=== PATIENT | female | born 1940 | race Caucasian/White ===

== ENCOUNTER → 2017-02-11 | Outpatient (CLI) | payer BC, MEDICARE ==
[2017-02-11 11:42] LABS: CH 31.4; CHCM 33.1; HDW 2.31; HGB 13.8 gm/dL (11.4-16.0); MCH 31.3 pg (25.0-35.0); MCHC 32.9 g/dL (31.0-37.0); MCV 95.1 fL (80.0-100.0); RBC 4.42 m/uL (3.80-5.40); RDW 12.9 % (11.5-15.5); WBC 4.2 k/uL (3.8-10.6)
[2017-02-11 11:53] LABS: AST 36 U/L (14-36); Alkaline Phosphatase 55 U/L (38-126); Anion Gap 7 mmol/L; Blood Urea Nitrogen 9 mg/dL (7-17); Calcium 8.8 mg/dL (8.4-10.2); Carbon Dioxide 30 mmol/L (22-30); Chloride 104 mmol/L (98-107); Cholesterol 132 mg/dL (<200); Glucose 81 mg/dL (74-99); HDL Cholesterol 53 mg/dL (40-60); Non-African American GFR(MDRD) >60 (>60 ml/min/1.73 sqM); Potassium 4.2 mmol/L (3.5-5.1); Sodium 141 mmol/L (137-145); Total Bilirubin 0.6 mg/dL (0.2-1.3); Total Protein 5.9 g/dL (6.3-8.2); Triglycerides 59 mg/dL (<150)
[2017-02-11 12:01] LABS: ALT 52 U/L (9-52)
--- NOTE | 2017-02-11 13:07 | XR ---
EXAMINATION TYPE: XR chest 2V DATE OF EXAM: 02/11/2017 COMPARISON: Prior chest x-ray 05/30/2015 HISTORY: Hypertensive heart disease, I11.9 TECHNIQUE: Frontal and lateral views of the chest are obtained. FINDINGS: There is no focal air space opacity, pleural effusion, or pneumothorax seen. The cardiac silhouette size is stable, borderline enlarged. The aorta is dense. There are prominent lung volume s. The osseous structures are intact. IMPRESSION: No acute cardiopulmonary process.
== END | disposition home or self-care (01) ==
LOC: LABWHC1 11:11
PROVIDERS: ATTEND Internal Medicine
DX: I11.9 Hypertensive heart disease without heart failure (principal); E78.2 Mixed hyperlipidemia; M19.90 Unspecified osteoarthritis, unspecified site; K21.0 Gastro-esophageal reflux disease with esophagitis
CPT/HCPCS: 36415; 71020; 80053; 80061; 82272; 84439; 84443; 85027

== ENCOUNTER → 2017-10-07 | Outpatient (CLI) | payer MEDICARE ==
[2017-10-07 10:02] LABS: HCT 45.9 % (34.0-46.0); HGB 15.1 gm/dL (11.4-16.0); MCH 30.4 pg (25.0-35.0); MCHC 32.8 g/dL (31.0-37.0); MCV 92.7 fL (80.0-100.0); Mean Platelet Volume 8.2; Platelet Count 212 k/uL (150-450); RBC 4.95 m/uL (3.80-5.40); RDW 13.4 % (11.5-15.5); WBC 4.9 k/uL (3.8-10.6)
[2017-10-07 10:28] LABS: Albumin 4.1 g/dL (3.5-5.0); Calcium 9.5 mg/dL (8.4-10.2); Potassium 4.7 mmol/L (3.5-5.1); Total Bilirubin 0.7 mg/dL (0.2-1.3); Total Protein 6.7 g/dL (6.3-8.2)
[2017-10-07 10:40] LABS: T4, Free (Free Thyroxine) 1.21 ng/dL (0.78-2.19)
== END | disposition home or self-care (01) ==
LOC: LABWHC1 09:19
PROVIDERS: ATTEND Internal Medicine
DX: Z00.01 Encounter for general adult medical examination with abnormal findings (principal); I11.9 Hypertensive heart disease without heart failure; E03.9 Hypothyroidism, unspecified; E78.2 Mixed hyperlipidemia; K21.0 Gastro-esophageal reflux disease with esophagitis
CPT/HCPCS: 36415; 80053; 80061; 82272; 84439; 84443; 85027

== ENCOUNTER 2017-12-11 10:15 | Emergency (ER) | payer MEDICARE ==
[2017-12-11 11:23] VITALS: TEMP 97.2
[2017-12-11] MEDS ORDERED: LORazepam 2 MG/ML INJ IV STA (11:46)
--- NOTE | 2017-12-11 11:58 | ED ---
Anxiety HPI - General Chief Complaint: Anxiety Stated Complaint: anxiety Time Seen by Provider: 12/11/17 11:25 Source: patient, RN notes reviewed Mode of arrival: ambulatory Limitations: no limitations - History of Present Illness Initial Comments: 77-year-old female presented emergency Department chief complaint of shaking. She states that she cannot control his shaking. She states that she's had problems with this in the past in which she had a nervous breakdown. Patient has had recent medication changes in which she was placed on Prozac in which she used to be on Cymbalta and Celexa. Patient states she's not suicidal homicidal. Patient denies any chest pain, shortness breath, headache, dizziness , nausea vomiting diarrhea constipation. - Related Data Home Medications: Home Medications Medication Instructions Recorded Confirmed Multivitamins, Thera [Theragran] 1 tab PO DAILY 06/07/15 12/11/17 Propylene Glycol/Peg 400/Pf 1 drop BOTH EYES DAILY 06/07/15 12/11/17 [Systane 0.3-0.4% Eye Drops] Diazepam [Valium] 2.5 mg PO HS 06/09/15 12/11/17 FLUoxetine HCL [PROzac] 20 mg PO DAILY 12/11/17 12/11/17 Levothyroxine Sodium [Synthroid] 100 mcg PO DAILY 12/11/17 12/11/17 Allergies/Adverse Reactions: Allergies Allergy/AdvReac Type Severity Reaction Status Date / Time codeine Allergy Unknown Verified 12/11/17 11:47 Sulfa (Sulfonamide AdvReac Unknown Verified 12/11/17 11:47 Antibiotics) Review of Systems ROS Statement: Those systems with pertinent positive or pertinent negative responses have been documented in the HPI. ROS Other: All systems not noted in ROS Statement are negative. Past Medical History Past Medical History: Hyperlipidemia, Thyroid Disorder Additional Past Medical History / Comment(s): 06/07/15 Pt presented to [facility] ER complaining of depression and anxiety. She has been struggling with this for about a month or so. She feels this is due to family problems at home. Her PCP is concerned about dehydration and weakness as well. Pt is admitted with anxiety, depression, dehydration and weakness. Other HX: hypothyroidism, recent UTI 05/30/15, arthiritis bilateral hands fingers, colonic polyps with removal, diverticular disease, occasional constipation. History of Any Multi-Drug Resistant Organisms: None Reported Past Surgical History: Adenoidectomy, Appendectomy, Hysterectomy, Orthopedic Surgery, Tonsillectomy Additional Past Surgical History / Comment(s): 2015 R heel tendon surgery with bone spur removal, bilateral cataracts, hemorrhoidectomy, R knee arthroscopy, colonoscopies with polypectomies, neuromas removed belateral feet as well as bunionectomy. Past Anesthesia/Blood Transfusion Reactions: Motion Sickness, Postoperative Nausea & Vomiting (PONV) Past Psychological History: Anxiety, Depression Smoking Status: Former smoker Past Alcohol Use History: None Reported Past Drug Use History: None Reported - Past Family History Father Additional Family Medical History / Comment(s): Father during abdominal aortic aneurysm repair at age 76yrs. Mother Family Medical History: Cancer Additional Family Medical History / Comment(s): Mother of breast cancer at age 77 yrs. General Exam General appearance: alert, in no apparent distress Head exam: Present: atraumatic, normocephalic, normal inspection Eye exam: Present: normal appearance, PERRL, EOMI. Absent: scleral icterus, conjunctival injection, periorbital swelling ENT exam: Present: normal exam, normal oropharynx, mucous membranes moist Neck exam: Present: normal inspection, full ROM. Absent: tenderness, meningismus, lymphadenopathy Respiratory exam: Present: normal lung sounds bilaterally. Absent: respiratory distress, wheezes, rales, rhonchi, stridor Cardiovascular Exam: Present: regular rate, normal rhythm, normal heart sounds. Absent: systolic murmur, diastolic murmur, rubs, gallop, clicks Neurological exam: Present: alert, oriented X3, CN II-XII intact, reflexes normal. Absent: motor sensory deficit Skin exam: Present: warm, dry, intact, normal color. Absent: rash Course Vital Signs 12/11/17 12/11/17 11:15 12:52 Temperature 97.2 F L Pulse Rate 71 72 Respiratory 18 18 Rate Blood Pressure 110/61 142/75 O2 Sat by Pulse 99 98 Oximetry Medical Decision Making - Medical Decision Making 69-year-old female presents from for anxiety issues. Patient has had medication changes and has been shaking because him. Patient had normal lab work. Patient is not suicidal homicidal. Patient feels better after Ativan will be discharged this time advise follow-up PCP. - Lab Data Result diagrams: 12/11/17 12:49 05/30/18 12:49 Lab Results 12/11/17 12/11/17 Range/Units 12:49 12:49 WBC 6.4 (3.8-10.6) k/uL RBC 4.83 (3.80-5.40) m/uL Hgb 15.2 (11.4-16.0) gm/dL Hct 44.6 (34.0-46.0) % MCV 92.3 (80.0-100.0) fL MCH 31.4 (25.0-35.0) pg MCHC 34.0 (31.0-37.0) g/dL RDW 13.3 (11.5-15.5) % Plt Count 218 (150-450) k/uL Neutrophils % 78 % Lymphocytes % 15 % Monocytes % 5 % Eosinophils % 1 % Basophils % 1 % Neutrophils # 5.0 (1.3-7.7) k/uL Lymphocytes # 1.0 (1.0-4.8) k/uL Monocytes # 0.3 (0-1.0) k/uL Eosinophils # 0.1 (0-0.7) k/uL Basophils # 0.0 (0-0.2) k/uL Sodium 143 (137-145) mmol/L Potassium 3.9 (3.5-5.1) mmol/L Chloride 104 (98-107) mmol/L Carbon Dioxide 27 (22-30) mmol/L Anion Gap 12 mmol/L BUN 12 (7-17) mg/dL Creatinine 0.59 (0.52-1.04) mg/dL Est GFR (CKD-EPI)AfAm >90 (>60 ml/min/1.73 sqM) Est GFR (CKD-EPI)NonAf 88 (>60 ml/min/1.73 sqM) Glucose 87 (74-99) mg/dL Calcium 9.3 (8.4-10.2) mg/dL Magnesium 2.3 (1.6-2.3) mg/dL Total Bilirubin 0.7 (0.2-1.3) mg/dL AST 20 (14-36) U/L ALT 29 (9-52) U/L Alkaline Phosphatase 79 (38-126) U/L Total Protein 6.6 (6.3-8.2) g/dL Albumin 4.4 (3.5-5.0) g/dL Disposition Clinical Impression: Acute anxiety Disposition: HOME SELF-CARE Condition: Stable Instructions: Generalized Anxiety Disorder (ED) Additional Instructions: Please return to the Emergency Department if symptoms worsen or any other concerns. Is patient prescribed a controlled substance at d/c from ED?: No Referrals: Wilbert Neff MD [Primary Care Provider] - 1-2 days Time of Disposition: 13:39
[2017-12-11 13:06] LABS: Basophils % (A) 1 %; Eosinophils # (A) 0.1 k/uL (0-0.7); Eosinophils % (A) 1 %; HCT 44.6 % (34.0-46.0); HGB 15.2 gm/dL (11.4-16.0); Lymphocytes % (A) 15 %; MCH 31.4 pg (25.0-35.0); MCV 92.3 fL (80.0-100.0); Mean Platelet Volume 8.2; Monocytes # (A) 0.3 k/uL (0-1.0); Monocytes % (A) 5 %; Neutrophils % (A) 78 %; Platelet Count 218 k/uL (150-450); RBC 4.83 m/uL (3.80-5.40); RDW 13.3 % (11.5-15.5); WBC 6.4 k/uL (3.8-10.6)
[2017-12-11 13:15] LABS: ALT 29 U/L (9-52); AST 20 U/L (14-36); Albumin 4.4 g/dL (3.5-5.0); Alkaline Phosphatase 79 U/L (38-126); Anion Gap 12 mmol/L; Blood Urea Nitrogen 12 mg/dL (7-17); Calcium 9.3 mg/dL (8.4-10.2); Carbon Dioxide 27 mmol/L (22-30); Chloride 104 mmol/L (98-107); Glucose 87 mg/dL (74-99); Magnesium 2.3 mg/dL (1.6-2.3); Potassium 3.9 mmol/L (3.5-5.1); Sodium 143 mmol/L (137-145); Total Bilirubin 0.7 mg/dL (0.2-1.3); Total Protein 6.6 g/dL (6.3-8.2)
[2017-12-11 13:56] VITALS: BP 128/79; PULSE 58; RESP 16
== END 2017-12-11 14:01 | disposition home or self-care (01) ==
LOC: EC 10:15
DX: F41.9 Anxiety disorder, unspecified (principal); E07.9 Disorder of thyroid, unspecified; F32.9 Major depressive disorder, single episode, unspecified; Z98.890 Other specified postprocedural states; Z87.891 Personal history of nicotine dependence; Z79.899 Other long term (current) drug therapy; Z88.2 Allergy status to sulfonamides; Z88.5 Allergy status to narcotic agent
CPT/HCPCS: 36415; 80053; 84443; 83735; 85025; 99283; 96374; J2060

== ENCOUNTER 2018-01-09 09:21 | Emergency (ER) | payer MEDICARE ==
[2018-01-09 09:27] VITALS: RESP 18
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
[2018-01-09 10:30] VITALS: BP 127/70; PULSE 82; TEMP 97.6
== END 2018-01-09 10:30 | disposition home or self-care (01) ==
LOC: EC 09:21
DX: S80.11XA Contusion of right lower leg, initial encounter (principal); S80.12XA Contusion of left lower leg, initial encounter; S70.12XA Contusion of left thigh, initial encounter; E03.9 Hypothyroidism, unspecified; F32.9 Major depressive disorder, single episode, unspecified; F41.9 Anxiety disorder, unspecified; Z87.891 Personal history of nicotine dependence; Z79.82 Long term (current) use of aspirin; Z79.899 Other long term (current) drug therapy; Z88.5 Allergy status to narcotic agent; Z88.2 Allergy status to sulfonamides; V24.4XXA Motorcycle driver injured in collision with heavy transport vehicle or bus in traffic accident, initial encounter; Y92.410 Unspecified street and highway as the place of occurrence of the external cause
CPT/HCPCS: 99283

== ENCOUNTER 2018-01-23 11:47 | Emergency (ER) | payer MEDICARE ==
--- NOTE | 2018-01-23 13:02 | ED ---
General Adult HPI - General Chief complaint: Psychiatric Symptoms Stated complaint: RT LOWER LEG PAIN Time Seen by Provider: 01/23/18 12:00 Source: patient, RN notes reviewed Mode of arrival: ambulatory Limitations: no limitations - History of Present Illness Initial comments: This is a 77-year-old female who is in the emergency department because she made a comment about jumping off the bridge. Patient states she was just joking with the nurse at the primary medical care doctor's office. Patient states she would never commit suicide and she hasn't even been thinking of suicide. Patient states she does have a history of depression because she doesn 't see her kids or grandkids because they [place]. Patient states she has no physical complaints today. Patient denies any delusions or hallucinations. Patient doesn't believe anybody is trying to harm her. Patient denies trying to harm anyone else. Patient denies any drug use patient denies any drinking. - Related Data Home Medications Medication Instructions Recorded Confirmed Multivitamins, Thera [Theragran] 1 tab PO DAILY 06/07/15 01/23/18 Levothyroxine Sodium [Synthroid] 100 mcg PO DAILY 12/11/17 01/23/18 LORazepam [Ativan] 1 mg PO BID 01/09/18 01/23/18 Ibuprofen [Motrin Ib] 400 mg PO Q6H PRN 01/23/18 01/23/18 Allergies Allergy/AdvReac Type Severity Reaction Status Date / Time codeine Allergy Unknown Verified 01/23/18 12:49 Sulfa (Sulfonamide AdvReac Unknown Verified 01/23/18 12:49 Antibiotics) Review of Systems ROS Statement: Those systems with pertinent positive or pertinent negative responses have been documented in the HPI. ROS Other: All systems not noted in ROS Statement are negative. Past Medical History Past Medical History: Hyperlipidemia, Thyroid Disorder Additional Past Medical History / Comment(s): depression and anxiety. weakness as well. Pt is admitted with anxiety, depression, dehydration and weakness. Other HX: hypothyroidism, recent UTI 05/30/15, arthiritis bilateral hands fingers, colonic polyps with removal, diverticular disease, occasional constipation. History of Any Multi-Drug Resistant Organisms: None Reported Past Surgical History: Adenoidectomy, Appendectomy, Hysterectomy, Orthopedic Surgery, Tonsillectomy Additional Past Surgical History / Comment(s): 2014 R heel tendon surgery with bone spur removal, bilateral cataracts, hemorrhoidectomy, R knee arthroscopy, colonoscopies with polypectomies, neuromas removed belateral feet as well as bunionectomy. Past Anesthesia/Blood Transfusion Reactions: Motion Sickness, Postoperative Nausea & Vomiting (PONV) Past Psychological History: Anxiety, Depression Smoking Status: Former smoker Past Alcohol Use History: None Reported Past Drug Use History: None Reported - Past Family History Father Additional Family Medical History / Comment(s): Father during abdominal aortic aneurysm repair at age 76yrs. Mother Family Medical History: Cancer Additional Family Medical History / Comment(s): Mother of breast cancer at age 77 yrs. General Exam - General Exam Comments Initial Comments: GENERAL: Patient is well-developed and well-nourished. Patient is nontoxic and well- hydrated and is in no acute distress. ENT: Neck is soft and supple. No significant lymphadenopathy is noted. Oropharynx is clear. Moist mucous membranes. EYES: The sclera were anicteric and conjunctiva were pink and moist. Extraocular movements were intact and pupils were equal round and reactive to light. Eyelids were unremarkable. PULMONARY: Unlabored respirations. Good breath sounds bilaterally. No audible rales rhonchi or wheezing was noted. CARDIOVASCULAR: There is a regular rate and rhythm without any murmurs gallops or rubs. ABDOMEN: Soft and nontender with normal bowel sounds. SKIN: Skin is clear with no lesions or rashes and otherwise unremarkable. NEUROLOGIC: Patient is alert and oriented x3. Cranial nerves II through XII are grossly intact. Motor and sensory are also intact. Normal speech, volume and content. Symmetrical smile. MUSCULOSKELETAL: Normal extremities with adequate strength and full range of motion. LYMPHATICS: No significant lymphadenopathy is noted PSYCHIATRIC: Normal psychiatric evaluation. Limitations: no limitations Course Vital Signs 01/23/18 01/23/18 12:07 14:25 Temperature 97.8 F 97.7 F Pulse Rate 69 72 Respiratory 18 16 Rate Blood Pressure 108/68 108/71 O2 Sat by Pulse 97 99 Oximetry Medical Decision Making - Medical Decision Making EPS evaluated the patient and she was cleared to go home and follow-up with her PCP. Disposition Clinical Impression: Evaluation by psychiatric service required Disposition: HOME SELF-CARE Condition: Good Instructions: Depression (ED) Is patient prescribed a controlled substance at d/c from ED?: No Referrals: Wilbert Neff MD [Primary Care Provider] - 1-2 days Time of Disposition: 14:13
[2018-01-23 14:26] VITALS: BP 108/71; PULSE 72; RESP 16; TEMP 97.7
== END 2018-01-23 14:25 | disposition home or self-care (01) ==
LOC: EC 11:47
DX: Z00.8 Encounter for other general examination (principal); E03.9 Hypothyroidism, unspecified; F41.9 Anxiety disorder, unspecified; Z87.891 Personal history of nicotine dependence; Z79.899 Other long term (current) drug therapy; Z88.2 Allergy status to sulfonamides; Z88.5 Allergy status to narcotic agent
CPT/HCPCS: 82075; 99284

== ENCOUNTER 2018-03-08 13:01 | Emergency (ER) | payer MEDICARE ==
[2018-03-08] MEDS ORDERED: LORazepam 1 MG TAB PO STA (13:47)
--- NOTE | 2018-03-08 14:04 | ED ---
General Adult HPI - General Chief complaint: Anxiety Stated complaint: anxiety Time Seen by Provider: 03/08/18 13:05 Source: patient, family, RN notes reviewed Mode of arrival: ambulatory Limitations: no limitations - History of Present Illness Initial comments: This is a 78-year-old female presents emergency Department complaining of anxiety. Patient states she's on Ativan 1 mg twice a day but today she was so nervous she was just shaking. Patient states this is happened multiple times in the past. Patient states she's tried to get in to see a psychiatrist and has been unsuccessful. Patient does not have any physical complaints today. She denies any headache she denies lightheadedness or dizziness. Patient denies any numbness or weakness. Patient denies any palpitations difficulty breathing or shortness of breath. Patient denies any abdominal pain patient denies nausea vomiting diarrhea. Patient denies any recent fever chills or cough. - Related Data Home Medications Medication Instructions Recorded Confirmed Levothyroxine Sodium [Synthroid] 100 mcg PO DAILY 12/11/17 03/10/18 LORazepam [Ativan] 1 mg PO BID PRN 01/09/18 03/10/18 FLUoxetine HCL [PROzac] 20 mg PO DAILY 03/10/18 03/10/18 Allergies Allergy/AdvReac Type Severity Reaction Status Date / Time codeine Allergy Unknown Verified 03/10/18 11:24 Sulfa (Sulfonamide AdvReac Unknown Verified 03/10/18 11:24 Antibiotics) Review of Systems ROS Statement: Those systems with pertinent positive or pertinent negative responses have been documented in the HPI. ROS Other: All systems not noted in ROS Statement are negative. Past Medical History Past Medical History: Hyperlipidemia, Thyroid Disorder Additional Past Medical History / Comment(s): depression and anxiety. weakness as well. Pt is admitted with anxiety, depression, dehydration and weakness. Other HX: hypothyroidism, recent UTI 05/30/15, arthiritis bilateral hands fingers, colonic polyps with removal, diverticular disease, occasional constipation. History of Any Multi-Drug Resistant Organisms: None Reported Past Surgical History: Adenoidectomy, Appendectomy, Hysterectomy, Orthopedic Surgery, Tonsillectomy Additional Past Surgical History / Comment(s): 2014 R heel tendon surgery with bone spur removal, bilateral cataracts, hemorrhoidectomy, R knee arthroscopy, colonoscopies with polypectomies, neuromas removed belateral feet as well as bunionectomy. Past Anesthesia/Blood Transfusion Reactions: Motion Sickness, Postoperative Nausea & Vomiting (PONV) Past Psychological History: Anxiety, Depression Smoking Status: Former smoker Past Alcohol Use History: None Reported Past Drug Use History: None Reported - Past Family History Father Additional Family Medical History / Comment(s): Father during abdominal aortic aneurysm repair at age 76yrs. Mother Family Medical History: Cancer Additional Family Medical History / Comment(s): Mother of breast cancer at age 77 yrs. General Exam - General Exam Comments Initial Comments: GENERAL: Patient is well-developed and well-nourished. Patient is nontoxic and well- hydrated and is in no acute distress. ENT: Neck is soft and supple. No significant lymphadenopathy is noted. Oropharynx is clear. Moist mucous membranes. Neck has full range of motion without eliciting any pain. EYES: The sclera were anicteric and conjunctiva were pink and moist. Extraocular movements were intact and pupils were equal round and reactive to light. Eyelids were unremarkable. SKIN: Skin is clear with no lesions or rashes and otherwise unremarkable. NEUROLOGIC: Patient is alert and oriented x3. Cranial nerves II through XII are grossly intact. Motor and sensory are also intact. Normal speech, volume and content. Symmetrical smile. MUSCULOSKELETAL: Normal extremities with adequate strength and full range of motion. LYMPHATICS: No significant lymphadenopathy is noted PSYCHIATRIC: Patient is mildly anxious. Limitations: no limitations Course Vital Signs 03/08/18 03/08/18 13:07 15:20 Temperature 98.2 F 97 F L Pulse Rate 84 68 Respiratory 18 16 Rate Blood Pressure 123/57 127/71 O2 Sat by Pulse 96 97 Oximetry Medical Decision Making - Medical Decision Making EPS spoke with the patient and gave the patient appropriate follow-up. Disposition Clinical Impression: Acute anxiety Disposition: HOME SELF-CARE Instructions: Generalized Anxiety Disorder (ED) Is patient prescribed a controlled substance at d/c from ED?: No Referrals: Wilbert Neff MD [Primary Care Provider] - 1-2 days Time of Disposition: 15:07
[2018-03-08 15:20] VITALS: BP 127/71; PULSE 68; RESP 16; TEMP 97
== END 2018-03-08 15:25 | disposition home or self-care (01) ==
LOC: EC 13:01
DX: F41.9 Anxiety disorder, unspecified (principal); E03.9 Hypothyroidism, unspecified; F32.9 Major depressive disorder, single episode, unspecified; Z87.891 Personal history of nicotine dependence; Z79.899 Other long term (current) drug therapy; Z88.2 Allergy status to sulfonamides; Z88.5 Allergy status to narcotic agent
CPT/HCPCS: 99283

== ENCOUNTER 2018-03-10 11:16 | Emergency (ER) | payer MEDICARE ==
[2018-03-10 11:20] VITALS: BP 134/72; PULSE 74; RESP 20; TEMP 97.7
--- NOTE | 2018-03-10 11:38 | ED ---
Anxiety HPI - General Chief Complaint: Anxiety Stated Complaint: Anxious Time Seen by Provider: 03/10/18 11:22 Source: patient, RN notes reviewed Mode of arrival: ambulatory - History of Present Illness Initial Comments: This is a 78-year-old female who presents to the emergency department with chief complaint of anxiety. She reports her "nerves" are acting up. Patient is accompanied by her friend who also contributes to history. Patient states that she has a history of nervous breakdown. She states that she has been seen here in the emergency department multiple times since November for anxiety. She states that in November Dr. Wilbert Neff prescribed her Prozac and lorazepam. Patient was seen here 2 days ago and did speak with EPS nurse who provided her with outpatient follow-up information. Patient states that she is having difficulty getting in to see a psychiatrist. Patient denies recent fevers or chills, chest pain shortness of breath, abdominal pain, nausea or vomiting, dizziness or headache. - Related Data Home Medications: Home Medications Medication Instructions Recorded Confirmed Levothyroxine Sodium [Synthroid] 100 mcg PO DAILY 12/11/17 03/10/18 LORazepam [Ativan] 1 mg PO BID PRN 01/09/18 03/10/18 FLUoxetine HCL [PROzac] 20 mg PO DAILY 03/10/18 03/10/18 Allergies/Adverse Reactions: Allergies Allergy/AdvReac Type Severity Reaction Status Date / Time codeine Allergy Unknown Verified 03/10/18 11:24 Sulfa (Sulfonamide AdvReac Unknown Verified 03/10/18 11:24 Antibiotics) Review of Systems ROS Statement: Those systems with pertinent positive or pertinent negative responses have been documented in the HPI. ROS Other: All systems not noted in ROS Statement are negative. Past Medical History Past Medical History: Hyperlipidemia, Thyroid Disorder Additional Past Medical History / Comment(s): depression and anxiety. weakness as well. Pt is admitted with anxiety, depression, dehydration and weakness. Other HX: hypothyroidism, recent UTI 05/30/15, arthiritis bilateral hands fingers, colonic polyps with removal, diverticular disease, occasional constipation. History of Any Multi-Drug Resistant Organisms: None Reported Past Surgical History: Adenoidectomy, Appendectomy, Hysterectomy, Orthopedic Surgery, Tonsillectomy Additional Past Surgical History / Comment(s): 2014 R heel tendon surgery with bone spur removal, bilateral cataracts, hemorrhoidectomy, R knee arthroscopy, colonoscopies with polypectomies, neuromas removed belateral feet as well as bunionectomy. Past Anesthesia/Blood Transfusion Reactions: Motion Sickness, Postoperative Nausea & Vomiting (PONV) Past Psychological History: Anxiety, Depression Smoking Status: Former smoker Past Alcohol Use History: None Reported Past Drug Use History: None Reported - Past Family History Father Additional Family Medical History / Comment(s): Father during abdominal aortic aneurysm repair at age 76yrs. Mother Family Medical History: Cancer Additional Family Medical History / Comment(s): Mother of breast cancer at age 77 yrs. General Exam - General Exam Comments Initial Comments: General: Awake and alert, well-developed; in no apparent distress. Patient's friend is at bedside. HEENT: Head atraumatic, normocephalic. Pupils are equal, round and reactive to light. Extraocular movements intact. Oropharynx moist without erythema or exudate. Neck: Supple. Normal ROM. Cardiovascular: Regular rate and rhythm. No murmurs, rubs or gallops. Chest symmetrical. Respiratory: Lungs clear to auscultation bilaterally. No wheezes, rales or rhonchi. Normal respiratory effort with no use of accessory muscles. Musculoskeletal: Normal ROM, no tenderness bilateral upper and lower extremities. Ambulating normally. Skin: [place], warm and dry without rashes or lesions. Neurological: Alert and oriented x3. CN II-XII grossly intact. Speech is fluent and answers are appropriate. No focal neuro deficits. Psychiatric: Appears mildly anxious. Limitations: no limitations Course Vital Signs 03/10/18 11:18 Temperature 97.7 F Pulse Rate 74 Respiratory 20 Rate Blood Pressure 134/72 O2 Sat by Pulse 97 Oximetry Medical Decision Making - Medical Decision Making This is a 78-year-old female who presents to the emergency department with chief complaint of anxiety. Patient seen here 2 days ago and was given follow- up information. Patient states that she is having difficulty getting in to see a psychiatrist. She denies suicidal or homicidal ideation. Recommended speaking with EPS nurse again, however patient declines. She is prescribed Prozac and lorazepam. I spoke with patient about having her medications adjusted by Dr. Neff, who prescribed them. Patient states that she will follow- up with Dr. Neff when she leaves the emergency department. Her vital signs are stable and she is in no acute distress. She will be discharged home at this time. All questions were answered. Disposition Clinical Impression: Anxiety Disposition: HOME SELF-CARE Condition: Good Instructions: Generalized Anxiety Disorder (ED) Additional Instructions: Please follow-up with Dr. Neff to have medications adjusted as needed. Please follow up with primary care provider within 1-2 days. Return to emergency department if symptoms should worsen or any concerns arise. Is patient prescribed a controlled substance at d/c from ED?: No Referrals: Wilbert Neff MD [Primary Care Provider] - 1-2 days Time of Disposition: 11:38
== END 2018-03-10 11:55 | disposition home or self-care (01) ==
LOC: EC 11:16
DX: F41.9 Anxiety disorder, unspecified (principal); F32.9 Major depressive disorder, single episode, unspecified; E03.9 Hypothyroidism, unspecified; Z87.891 Personal history of nicotine dependence; Z79.899 Other long term (current) drug therapy; Z88.5 Allergy status to narcotic agent; Z88.2 Allergy status to sulfonamides
CPT/HCPCS: 99283

== ENCOUNTER 2021-04-20 20:44 | Emergency (ER) | payer MEDICARE ==
[2021-04-20] MEDS ORDERED: TOPICAL SKIN ADHESIVE 1 EACH AMP TOPICAL STA (21:58)
[2021-04-20 22:14] VITALS: BP 107/77; PULSE 87; RESP 18; TEMP 98.3
--- NOTE | 2021-04-20 22:23 | ED ---
Wound/Laceration HPI - General Chief Complaint: Wound/Laceration Stated Complaint: Skin laceration Time Seen by Provider: 04/20/21 21:32 Source: patient, RN notes reviewed, old records reviewed Mode of arrival: EMS Limitations: no limitations, altered mental status (Mild dementia) - History of Present Illness Initial Comments: This is an 81-year-old female to the ER for evaluation today. Patient Dese for evaluation regarding skin tear the exterior her right leg. Patient was unsure of how it happened about presents to the ER for evaluation of this injury. Patient is mildly from that site unsure of when this event happened or how long or happened. Patient has no other complaints able to ambulate without difficulty. No significant injury medical history and no significant trauma noted -: unknown Extremity Location: Right: Lower Leg Place: outdoors Patient Tetanus UTD: Yes Context: accidental Associated Symptoms: none Treatments Prior to Arrival: bandage - Related Data Home Medications Medication Instructions Recorded Confirmed Levothyroxine Sodium [Synthroid] 100 mcg PO DAILY 12/11/17 03/10/18 LORazepam [Ativan] 1 mg PO BID PRN 01/09/18 03/10/18 FLUoxetine HCL [PROzac] 20 mg PO DAILY 03/10/18 03/10/18 Allergies Allergy/AdvReac Type Severity Reaction Status Date / Time codeine Allergy Unknown Verified 04/20/21 21:04 Sulfa (Sulfonamide AdvReac Unknown Verified 04/20/21 21:04 Antibiotics) Review of Systems ROS Statement: Those systems with pertinent positive or pertinent negative responses have been documented in the HPI. ROS Other: All systems not noted in ROS Statement are negative. Past Medical History Past Medical History: Hyperlipidemia, Thyroid Disorder Additional Past Medical History / Comment(s): depression and anxiety. weakness as well. Pt is admitted with anxiety, depression, dehydration and weakness. Other HX: hypothyroidism, recent UTI 05/30/15, arthiritis bilateral hands fingers, colonic polyps with removal, diverticular disease, occasional constipation. History of Any Multi-Drug Resistant Organisms: None Reported Past Surgical History: Adenoidectomy, Appendectomy, Hysterectomy, Orthopedic Surgery, Tonsillectomy Additional Past Surgical History / Comment(s): 2014 R heel tendon surgery with bone spur removal, bilateral cataracts, hemorrhoidectomy, R knee arthroscopy, colonoscopies with polypectomies, neuromas removed belateral feet as well as bunionectomy. Past Anesthesia/Blood Transfusion Reactions: Motion Sickness, Postoperative Nausea & Vomiting (PONV) Past Psychological History: Anxiety, Depression Past Alcohol Use History: None Reported Past Drug Use History: None Reported - Past Family History Father Additional Family Medical History / Comment(s): Father during abdominal aortic aneurysm repair at age 76yrs. Mother Family Medical History: Cancer Additional Family Medical History / Comment(s): Mother of breast cancer at age 77 yrs. General Exam - General Exam Comments Initial Comments: GCS of 15 5 cm skin tear, right sternal aspect of right lower extremity Not bleeding Approximated well Limitations: no limitations General appearance: alert, in no apparent distress Head exam: Present: atraumatic, normocephalic, normal inspection Eye exam: Present: normal appearance, PERRL, EOMI. Absent: scleral icterus, conjunctival injection, periorbital swelling ENT exam: Present: normal exam, mucous membranes moist Neck exam: Present: normal inspection. Absent: tenderness, meningismus, lymphadenopathy Respiratory exam: Present: normal lung sounds bilaterally. Absent: respiratory distress, wheezes, rales, rhonchi, stridor Cardiovascular Exam: Present: regular rate, normal rhythm, normal heart sounds. Absent: systolic murmur, diastolic murmur, rubs, gallop, clicks GI/Abdominal exam: Present: soft, normal bowel sounds. Absent: distended, tenderness, guarding, rebound, rigid Extremities exam: Present: normal inspection, full ROM, normal capillary refill. Absent: tenderness, pedal edema, joint swelling, calf tenderness Back exam: Present: normal inspection Neurological exam: Present: alert, oriented X3, CN II-XII intact Psychiatric exam: Present: normal affect, normal mood Skin exam: Present: warm, dry, intact, normal color. Absent: rash Course Vital Signs 04/20/21 04/20/21 21:00 22:08 Temperature 97.9 F 98.3 F Pulse Rate 96 87 Respiratory 16 18 Rate Blood Pressure 101/61 107/77 O2 Sat by Pulse 98 97 Oximetry - Reevaluation(s) Reevaluation #1: 04/20/21 22:44 Medical record is reviewed Reevaluation #2: 04/20/21 22:44 Skin is cleaned repaired with Dermabond and bandage Reevaluation #3: 04/20/21 22:44 Patient is informed of results and questions answered Procedures - Laceration Laceration #1 Consent Obtained: verbal consent Indication: laceration Site: lower extremity Size (cm): 5 Description: linear, clean Depth: simple, single layer Size of Sutures: other (Dermabond) Patient Tolerated Procedure: well Medical Decision Making - Medical Decision Making 81 female DEL with skin tear of right lower extremity, skin tears cleaned bandaged after being repair with Dermabond and patient can be discharged home Disposition Clinical Impression: Skin tear of right lower leg without complication Disposition: HOME SELF-CARE Condition: Good Instructions (If sedation given, give patient instructions): Skin Tear (ED) Is patient prescribed a controlled substance at d/c from ED?: No Referrals: None,Stated [Primary Care Provider] - 1-2 days
== END 2021-04-20 22:27 | disposition home or self-care (01) ==
LOC: EC 20:44
DX: S81.811A Laceration without foreign body, right lower leg, initial encounter (principal); E78.5 Hyperlipidemia, unspecified; E03.9 Hypothyroidism, unspecified; F41.9 Anxiety disorder, unspecified; F32.9 Major depressive disorder, single episode, unspecified; Z79.890 Hormone replacement therapy; Z79.899 Other long term (current) drug therapy; Z88.2 Allergy status to sulfonamides; Z88.5 Allergy status to narcotic agent; Z86.018 Personal history of other benign neoplasm; Z90.49 Acquired absence of other specified parts of digestive tract; Z80.3 Family history of malignant neoplasm of breast; X58.XXXA Exposure to other specified factors, initial encounter
CPT/HCPCS: 12002; 99283

== ENCOUNTER 2022-03-23 03:42 | Inpatient (IN) | payer MEDICARE ==
--- NOTE | 2022-03-23 04:14 | ED ---
Weakness HPI - General Chief complaint: Recheck/Abnormal Lab/Rx Stated complaint: Hypotension Time Seen by Provider: 03/23/22 04:14 Source: patient, EMS, RN notes reviewed, old records reviewed Mode of arrival: EMS Limitations: no limitations - History of Present Illness Initial comments: This is a 82-year-old female who presents without complaint. For transfer for some extended care facility patient was wandering not acting appropriately and was found of low blood pressure and weaker than usual. Patient self upon arrival to ER has no current complaint does have mild history of dementia, patient is a poor story MD Complaint: generalized weakness, difficulty walking -: days(s) Location: generalized Severity: moderate Severity scale (1-10): 4 Consistency: constant Improves with: none Worsens with: none Context: history of similar Associated Symptoms: denies other symptoms - Related Data Home Medications Medication Instructions Recorded Confirmed Levothyroxine Sodium [Synthroid] 100 mcg PO DAILY 12/11/17 03/10/18 LORazepam [Ativan] 1 mg PO BID PRN 01/09/18 03/10/18 FLUoxetine HCL [PROzac] 20 mg PO DAILY 03/10/18 03/10/18 Allergies Allergy/AdvReac Type Severity Reaction Status Date / Time codeine Allergy Unknown Verified 03/23/22 03:49 Sulfa (Sulfonamide AdvReac Unknown Verified 03/23/22 03:49 Antibiotics) Review of Systems ROS Statement: Those systems with pertinent positive or pertinent negative responses have been documented in the HPI. ROS Other: All systems not noted in ROS Statement are negative. Past Medical History Past Medical History: Dementia, Hyperlipidemia, Thyroid Disorder Additional Past Medical History / Comment(s): depression and anxiety. weakness as well. Pt is admitted with anxiety, depression, dehydration and weakness. Other HX: hypothyroidism, recent UTI 05/30/15, arthiritis bilateral hands fingers, colonic polyps with removal, diverticular disease, occasional constipation. History of Any Multi-Drug Resistant Organisms: None Reported Past Surgical History: Adenoidectomy, Appendectomy, Hysterectomy, Orthopedic Surgery, Tonsillectomy Additional Past Surgical History / Comment(s): 2014 R heel tendon surgery with bone spur removal, bilateral cataracts, hemorrhoidectomy, R knee arthroscopy, colonoscopies with polypectomies, neuromas removed belateral feet as well as bunionectomy. Past Anesthesia/Blood Transfusion Reactions: Motion Sickness, Postoperative Nausea & Vomiting (PONV) Past Psychological History: Anxiety, Depression Smoking Status: Former smoker Past Alcohol Use History: Occasional Past Drug Use History: None Reported - Past Family History Father Additional Family Medical History / Comment(s): Father during abdominal aortic aneurysm repair at age 76yrs. Mother Family Medical History: Cancer Additional Family Medical History / Comment(s): Mother of breast cancer at age 77 yrs. General Exam Limitations: no limitations, altered mental status General appearance: alert, in no apparent distress, cachectic Head exam: Present: atraumatic, normocephalic, normal inspection Eye exam: Present: normal appearance, PERRL, EOMI. Absent: scleral icterus, conjunctival injection, periorbital swelling ENT exam: Present: normal exam, mucous membranes moist Neck exam: Present: normal inspection. Absent: tenderness, meningismus, ly mphadenopathy Respiratory exam: Present: normal lung sounds bilaterally. Absent: respiratory distress, wheezes, rales, rhonchi, stridor Cardiovascular Exam: Present: regular rate, normal rhythm, normal heart sounds. Absent: systolic murmur, diastolic murmur, rubs, gallop, clicks GI/Abdominal exam: Present: soft, normal bowel sounds. Absent: distended, tenderness, guarding, rebound, rigid Extremities exam: Present: normal inspection, full ROM, normal capillary refill. Absent: tenderness, pedal edema, joint swelling, calf tenderness Back exam: Present: normal inspection Neurological exam: Present: alert, oriented X3, CN II-XII intact Psychiatric exam: Present: normal affect, normal mood Skin exam: Present: warm, dry, intact, normal color. Absent: rash Course Vital Signs 03/23/22 03:45 Temperature 98.4 F Pulse Rate 77 Respiratory 20 Rate Blood Pressure 103/67 O2 Sat by Pulse 93 L Oximetry - Reevaluation(s) Reevaluation #1: 03/23/22 05:37 Medical records reviewed Reevaluation #2: 03/23/22 05:37 Patient without chest pain without complaint Reevaluation #3: 03/23/22 05:37 Patient informed results and questions answered - Consultations Consultation #1: Spoke with [facility] physicians who agree to admit this patient EKG Findings - EKG Comments: EKG Findings:: EKG sinus 74 UT 205 QRS 144 QTC 481 Medical Decision Making - Medical Decision Making 82 female DF for evaluation of weakness low blood pressure and altered mental status patient be admitted with non-ST elevated DC dehydration and hypotension - Lab Data Result diagrams: 03/23/22 04:17 03/23/22 04:17 Lab Results 03/23/22 03/23/22 03/23/22 Range/Units 04:17 04:17 04:17 WBC 17.3 H (3.8-10.6) k/uL RBC 4.73 (3.80-5.40) m/uL Hgb 14.0 (11.4-16.0) gm/dL Hct 44.1 (34.0-46.0) % MCV 93.2 (80.0-100.0) fL MCH 29.7 (25.0-35.0) pg MCHC 31.8 (31.0-37.0) g/dL RDW 13.7 (11.5-15.5) % Plt Count 153 (150-450) k/uL MPV 9.2 Neutrophils % 93 % Lymphocytes % 2 % Monocytes % 4 % Eosinophils % 1 % Basophils % 0 % Neutrophils # 16.2 H (1.3-7.7) k/uL Lymphocytes # 0.3 L (1.0-4.8) k/uL Monocytes # 0.6 (0-1.0) k/uL Eosinophils # 0.1 (0-0.7) k/uL Basophils # 0.0 (0-0.2) k/uL PT 11.4 (9.0-12.0) sec INR 1.1 (<1.2) APTT 24.1 (22.0-30.0) sec Sodium 137 (137-145) mmol/L Potassium 4.1 (3.5-5.1) mmol/L Chloride 100 (98-107) mmol/L Carbon Dioxide 24 (22-30) mmol/L Anion Gap 13 mmol/L BUN 18 H (7-17) mg/dL Creatinine 0.81 (0.52-1.04) mg/dL Est GFR (CKD-EPI)AfAm 78 (>60 ml/min/1.73 sqM) Est GFR (CKD-EPI)NonAf 68 (>60 ml/min/1.73 sqM) Glucose 125 H (74-99) mg/dL Calcium 9.3 (8.4-10.2) mg/dL Total Bilirubin 1.2 (0.2-1.3) mg/dL AST 36 (14-36) U/L ALT 23 (4-34) U/L Alkaline Phosphatase 101 (38-126) U/L Troponin I (0.000-0.034) ng/mL Total Protein 6.6 (6.3-8.2) g/dL Albumin 4.4 (3.5-5.0) g/dL 03/23/22 Range/Units 04:17 WBC (3.8-10.6) k/uL RBC (3.80-5.40) m/uL Hgb (11.4-16.0) gm/dL Hct (34.0-46.0) % MCV (80.0-100.0) fL MCH (25.0-35.0) pg MCHC (31.0-37.0) g/dL RDW (11.5-15.5) % Plt Count (150-450) k/uL MPV Neutrophils % % Lymphocytes % % Monocytes % % Eosinophils % % Basophils % % Neutrophils # (1.3-7.7) k/uL Lymphocytes # (1.0-4.8) k/uL Monocytes # (0-1.0) k/uL Eosinophils # (0-0.7) k/uL Basophils # (0-0.2) k/uL PT (9.0-12.0) sec INR (<1.2) APTT (22.0-30.0) sec Sodium (137-145) mmol/L Potassium (3.5-5.1) mmol/L Chloride (98-107) mmol/L Carbon Dioxide (22-30) mmol/L Anion Gap mmol/L BUN (7-17) mg/dL Creatinine (0.52-1.04) mg/dL Est GFR (CKD-EPI)AfAm (>60 ml/min/1.73 sqM) Est GFR (CKD-EPI)NonAf (>60 ml/min/1.73 sqM) Glucose (74-99) mg/dL Calcium (8.4-10.2) mg/dL Total Bilirubin (0.2-1.3) mg/dL AST (14-36) U/L ALT (4-34) U/L Alkaline Phosphatase (38-126) U/L Troponin I 1.510 H* (0.000-0.034) ng/mL Total Protein (6.3-8.2) g/dL Albumin (3.5-5.0) g/dL - Radiology Data Radiology results: report reviewed (Chest x-rays negative for acute disease), image reviewed Critical Care Time Critical Care Time: Yes Total Critical Care Time: 31 Disposition Clinical Impression: Dehydration, Weakness, NSTEMI (non-ST elevated myocardial infarction) Disposition: ADMITTED IP TO THIS HOSP Condition: Fair Is patient prescribed a controlled substance at d/c from ED?: No Referrals: None,Stated [Primary Care Provider] - 1-2 days Time of Disposition: 05:40
[2022-03-23 04:42] LABS: Basophils % (A) 0 %; Eosinophils # (A) 0.1 k/uL (0-0.7); Eosinophils % (A) 1 %; HCT 44.1 % (34.0-46.0); Lymphocytes # (A) 0.3 k/uL (1.0-4.8); Lymphocytes % (A) 2 %; MCH 29.7 pg (25.0-35.0); MCHC 31.8 g/dL (31.0-37.0); MCV 93.2 fL (80.0-100.0); Mean Platelet Volume 9.2; Monocytes # (A) 0.6 k/uL (0-1.0); Monocytes % (A) 4 %; Neutrophils # (A) 16.2 k/uL (1.3-7.7); Neutrophils % (A) 93 %; Platelet Count 153 k/uL (150-450); RBC 4.73 m/uL (3.80-5.40); RDW 13.7 % (11.5-15.5); WBC 17.3 k/uL (3.8-10.6)
[2022-03-23 04:53] LABS: INR 1.1 (<1.2); Partial Thromboplastin Time 24.1 sec (22.0-30.0); Prothrombin Time 11.4 sec (9.0-12.0)
[2022-03-23 04:58] LABS: Albumin 4.4 g/dL (3.5-5.0); Calcium 9.3 mg/dL (8.4-10.2); Potassium 4.1 mmol/L (3.5-5.1); Total Bilirubin 1.2 mg/dL (0.2-1.3); Total Protein 6.6 g/dL (6.3-8.2)
--- NOTE | 2022-03-23 05:05 | XR ---
EXAMINATION TYPE: XR chest 2V DATE OF EXAM: 03/23/2022 COMPARISON: NONE None available on PACS. HISTORY: Weakness TECHNIQUE: 2 views FINDINGS: Heart is enlarged. No heart failure. Thoracic aorta is atheromatous. No pleural effusion. T here are some coarsening of interstitial markings. No heart failure. IMPRESSION: Mild pulmonary fibrosis. No obvious heart failure. Mild cardiomegaly.
[2022-03-23] MEDS ORDERED: cefTRIAXone IN SWFI 1,000 MG/10 ML SYRINGE IVP STA (05:33)
[2022-03-23] MEDS ORDERED: MORPHINE SULFATE 4 MG/ML SYRINGE IV PRN (05:38)
[2022-03-23] MEDS ORDERED: NALOXONE 0.4 MG/ML 1 ML VIAL IV PRN (05:38)
[2022-03-23] MEDS ORDERED: ONDANSETRON 4 MG/2 ML VIAL IVP PRN (05:38)
[2022-03-23] MEDS ORDERED: SODIUM CHLORIDE 0.9% 1,000 ML IV STA (05:40)
[2022-03-23] MEDS ORDERED: SODIUM CHLORIDE 0.9% 500 ML 500 ML IV STA (05:40)
[2022-03-23] MEDS: SODIUM CHLORIDE 0.9% 1,000 ML IV SCH (05:51)
[2022-03-23] MEDS ORDERED: ALPRAZolam 0.5 MG TAB PO PRN (10:28)
[2022-03-23] MEDS ORDERED: HEPARIN SODIUM 1,000 UN/ML (10ML VL) IV ONE (10:43)
--- NOTE | 2022-03-23 10:49 | P.HPIM ---
History of Present Illness H&P Date: 03/23/22 Chief Complaint: weakness 82-year-old female with history of dementia and anxiety who presents to the emergency department from assisted living facility with general weakness and change in mental status. According to the ER records patient was transferred due to patient wandering and not acting appropriately as she normally does and was also found to have low blood pressure. Due to dementia and confusion patient is not able to provide me any meaningful history at this time. I called the numbers in the chart general listed as friends contacts, no one picked up. I did speak to her son who was not aware that she was in the hospital. I called her assisted living facility with no answer. Evaluation in the emergency department revealed mild cardiomegaly, mild pulmon randolph fibrosis on the chest x-ray. Labs showed leukocytosis with WBC count 17,000, troponin 1.5. EKG showed normal sinus rhythm with ST depression in 1, aVL and V6 as well as a right bundle-branch block. Past Medical History Past Medical History: Dementia, Hyperlipidemia, Thyroid Disorder Additional Past Medical History / Comment(s): depression and anxiety. weakness as well. Pt is admitted with anxiety, depression, dehydration and weakness. Other HX: hypothyroidism, recent UTI 05/30/15, arthiritis bilateral hands fingers, colonic polyps with removal, diverticular disease, occasional constipation. History of Any Multi-Drug Resistant Organisms: None Reported Past Surgical History: Adenoidectomy, Appendectomy, Hysterectomy, Orthopedic Surgery, Tonsillectomy Additional Past Surgical History / Comment(s): 2014 R heel tendon surgery with bone spur removal, bilateral cataracts, hemorrhoidectomy, R knee arthroscopy, colonoscopies with polypectomies, neuromas removed belateral feet as well as bunionectomy. Past Anesthesia/Blood Transfusion Reactions: Motion Sickness, Postoperative Nausea & Vomiting (PONV) Past Psychological History: Anxiety, Depression Smoking Status: Former smoker Past Alcohol Use History: Occasional Past Drug Use History: None Reported - Past Family History Father Additional Family Medical History / Comment(s): Father during abdominal ao rtic aneurysm repair at age 76yrs. Mother Family Medical History: Cancer Additional Family Medical History / Comment(s): Mother of breast cancer at age 77 yrs. Medications and Allergies Home Medications Medication Instructions Recorded Confirmed Type ALPRAZolam [Xanax] 0.5 mg PO TID PRN 03/23/22 03/23/22 History Ascorbic Acid [Vitamin C] 500 mg PO DAILY 03/23/22 03/23/22 History Bacitracin Zinc Oint 1 applic TOPICAL DAILY PRN 03/23/22 03/23/22 History Bismuth Subsalicylate 30 ml PO Q30M PRN MDD 240 ml 03/23/22 03/23/22 History [Pepto-Bismol] Cholecalciferol [Vitamin D3 (125 125 mcg PO DAILY 03/23/22 03/23/22 History Mcg = 5000 Iu)] Cyanocobalamin (Vitamin B-12) 1,000 mcg PO DAILY 03/23/22 03/23/22 History [Vitamin B-12] Donepezil [Aricept] 10 mg PO DAILY 03/23/22 03/23/22 History FLUoxetine HCL [Sarafem] 60 mg PO DAILY 03/23/22 03/23/22 History Levothyroxine Sodium [Synthroid] 112 mcg PO DAILY 03/23/22 03/23/22 History Loratadine [Claritin] 10 mg PO DAILY 03/23/22 03/23/22 History Memantine [Namenda] 10 mg PO BID 03/23/22 03/23/22 History Zinc Gluconate [Zinc] 50 mg PO DAILY 03/23/22 03/23/22 History diazePAM [Valium] 2.5 mg PO BID 03/23/22 03/23/22 History traZODone HCL [Desyrel] 50 mg PO HS 03/23/22 03/23/22 History Allergies Allergy/AdvReac Type Severity Reaction Status Date / Time codeine Allergy Unknown Verified 03/23/22 07:29 Sulfa (Sulfonamide Allergy Unknown Verified 03/23/22 07:30 Antibiotics) Physical Exam Vitals: Vital Signs Temp Pulse Pulse Resp BP BP Pulse Ox 03/23/22 09:43 97.8 F 75 18 103/63 90 L 03/23/22 03:45 98.4 F 77 20 103/67 93 L Intake and Output 03/22/22 03/23/22 03/23/22 22:59 06:59 14:59 Intake Total 0 Balance 0 Intake: Oral 0 Other: Weight 61.235 kg Constitutional: No acute distress, conversant, pleasant Eyes:Anicteric sclerae, moist conjunctiva, no lid-lag, PERRLA, ENMT: Oropharynx clear, no erythema, exudates Neck: Supple, FROM, no masses, or JVD, No carotid bruits, No thyromegaly Lungs: Clear to auscultation, Clear to percussion, Normal respiratory effort, no accessory muscle use Cardiovascular: Heart regular in rate and rhythm, No murmurs, gallops, or rubs, No peripheral edema Abdominal: Soft, Nontender, no guarding, rebound or rigidity, Normoactive bowel sounds, No hepatomegaly, No splenomegaly, No palpable mass Skin: Normal temperature, tone, texture, turgor, no induration, No subcutaneous nodules, No rash, lesions, No ulcers Extremities: No digital cyanosis, No clubbing, Pedal pulses intact and symmetrical, Radial pulses intact and symmetrical, No calf tenderness Neuro: Confused, disoriented to place and date. Moving all extremities. General weakness. Results CBC & Chem 7: 03/23/22 04:17 03/23/22 04:17 Labs: Abnormal Lab Results - Last 24 Hours (Table) 03/23/22 03/23/22 03/23/22 Range/Units 04:17 04:17 04:17 WBC 17.3 H (3.8-10.6) k/uL Neutrophils # 16.2 H (1.3-7.7) k/uL Lymphocytes # 0.3 L (1.0-4.8) k/uL BUN 18 H (7-17) mg/dL Glucose 125 H (74-99) mg/dL Troponin I 1.510 H* (0.000-0.034) ng/mL 03/23/22 Range/Units 07:28 WBC (3.8-10.6) k/uL Neutrophils # (1.3-7.7) k/uL Lymphocytes # (1.0-4.8) k/uL BUN (7-17) mg/dL Glucose (74-99) mg/dL Troponin I 1.670 H* (0.000-0.034) ng/mL Assessment and Plan Plan: Encephalopathy, acute on chronic secondary to dementia General weakness Unclear etiology, possibly secondary to myocardial infarction Treatment as below Check UA Elevated troponin, likely secondary to non-ST elevation TN Heparin drip Cardiology consultation Cycle troponins Telemetry Depression/anxiety, chronic Continue medications, she is chronically on benzodiazepines Continue Prozac and trazodone Hypothyroidism On replacement Check TSH Admit to inpatient, expected length of stay more than 2 midnights
[2022-03-23 10:53] LABS: Appearance,Urine Cloudy (Clear); Bacteria,Urine Rare /hpf; Bilirubin,Urine Negative (Negative); Blood,Urine Negative (Negative); Color,Urine Yellow; Glucose,Urine (UA) Negative (Negative); Hyaline Casts,Urine 44 /lpf (0-2); Ketones,Urine 1+ (Negative); Leukocyte Esterase,Urine Small (Negative); Mucus,Urine Many /hpf; Nitrite,Urine Negative (Negative); Protein,Urine 1+ (Negative); RBC,Urine 19 /hpf (0-5); Specific Gravity,Urine 1.023 (1.001-1.035); Squamous Epithelial Cell,Urine 2 /hpf (0-4); Urobilinogen,Urine <2.0 mg/dL (<2.0); WBC,Urine 9 /hpf (0-5)
[2022-03-23] MEDS: HEPARIN SOD,PORK IN 0.45% NACL 25,000 UNIT in 0.45% NACL 1 250ML.BAG IV SCH (11:27)
--- NOTE | 2022-03-23 12:42 | P.CRDCN ---
History of Present Illness Consult date: 03/23/22 History of present illness: This is a pleasantly confused 82-year-old female who has a known history of hyperlipidemia, mild dementia, hypothyroidism. We have been consulted to see the patient for elevated troponins, 1.51, 1.67, 1.6 to. 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 Patient resides at [facility] and has a known history of dementia. She initially came in due to altered mental statusand is positive for a UTI. Her EKG shows sinus rhythm with PVCs a right bundle-branch block and a controlled heart rate in the 70s. Her chest x-ray shows mild pulmonary fibrosis and mild cardiomegaly. She is resting comfortably in bed in no signs of acute distress. She denies chest pain, or increased shortness of breath. Patient is hemodynamically stable. She is unsure as to why she was initially brought in. Will start patient on beta mary, Lipitor Imdur and aspirin. Continue with heparin drip. Will obtain a 2-D echocardiogram. Will discuss with patient's family regarding further treatments. Patient will require a cardiac catheterization on Saturday. If the family does not wish to forego cardiac catheterization will continue with optimal medical management. Review of Systems REVIEW OF SYSTEMS At the time of my exam: CONSTITUTIONAL: Denies fever or chills. EYES: Negative for vision changes ENT: Negative for hearing loss CARDIOVASCULAR: Denies chest pain, shortness of breath, diaphoresis, orthopnea, PND or palpitations. VASCULAR: Denies edema RESPIRATORY: Denies cough. GASTROINTESTINAL: Denies abdominal pain, diarrhea, constipation, nausea or vomiting. MUSCULOSKELETAL: Denies myalgias. NEUROLOGIC: Denies numbness, tingling, headache or weakness. ENDOCRINE: Denies fatigue, weight change, polydipsia or polyurina. GENITOURINARY: Denies burning, hematuria or urgency with micturation. HEMATOLOGIC: Denies history of anemia or bleeding. DERMATOLOGY: Denies rash or skin sores PSYCH: Negative for depression or hallucinations. Past Medical History Past Medical History: Dementia, Hyperlipidemia, Thyroid Disorder Additional Past Medical History / Comment(s): depression and anxiety. weakness as well. Pt is admitted with anxiety, depression, dehydration and weakness. Other HX: hypothyroidism, recent UTI 05/30/15, arthiritis bilateral hands fingers, colonic polyps with removal, diverticular disease, occasional constipation. History of Any Multi-Drug Resistant Organisms: None Reported Past Surgical History: Adenoidectomy, Appendectomy, Hysterectomy, Orthopedic Surgery, Tonsillectomy Additional Past Surgical History / Comment(s): 2015 R heel tendon surgery with bone spur removal, bilateral cataracts, hemorrhoidectomy, R knee arthroscopy, colonoscopies with polypectomies, neuromas removed belateral feet as well as bunionectomy. Past Anesthesia/Blood Transfusion Reactions: Motion Sickness, Postoperative Nausea & Vomiting (PONV) Past Psychological History: Anxiety, Depression Smoking Status: Former smoker Past Alcohol Use History: Occasional Past Drug Use History: None Reported - Past Family History Father Additional Family Medical History / Comment(s): Father during abdominal aortic aneurysm repair at age 76yrs. Mother Family Medical History: Cancer Additional Family Medical History / Comment(s): Mother of breast cancer at age 77 yrs. Medications and Allergies Home Medications Medication Instructions Recorded Confirmed Type ALPRAZolam [Xanax] 0.5 mg PO TID PRN 03/23/22 03/23/22 History Ascorbic Acid [Vitamin C] 500 mg PO DAILY 03/23/22 03/23/22 History Bacitracin Zinc Oint 1 applic TOPICAL DAILY PRN 03/23/22 03/23/22 History Bismuth Subsalicylate 30 ml PO Q30M PRN MDD 240 ml 03/23/22 03/23/22 History [Pepto-Bismol] Cholecalciferol [Vitamin D3 (125 125 mcg PO DAILY 03/23/22 03/23/22 History Mcg = 5000 Iu)] Cyanocobalamin (Vitamin B-12) 1,000 mcg PO DAILY 03/23/22 03/23/22 History [Vitamin B-12] Donepezil [Aricept] 10 mg PO DAILY 03/23/22 03/23/22 History FLUoxetine HCL [Sarafem] 60 mg PO DAILY 03/23/22 03/23/22 History Levothyroxine Sodium [Synthroid] 112 mcg PO DAILY 03/23/22 03/23/22 History Loratadine [Claritin] 10 mg PO DAILY 03/23/22 03/23/22 History Memantine [Namenda] 10 mg PO BID 03/23/22 03/23/22 History Zinc Gluconate [Zinc] 50 mg PO DAILY 03/23/22 03/23/22 History diazePAM [Valium] 2.5 mg PO BID 03/23/22 03/23/22 History traZODone HCL [Desyrel] 50 mg PO HS 03/23/22 03/23/22 History Allergies Allergy/AdvReac Type Severity Reaction Status Date / Time codeine Allergy Unknown Verified 03/23/22 07:29 Sulfa (Sulfonamide Allergy Unknown Verified 03/23/22 07:30 Antibiotics) Physical Exam Vitals: Vital Signs Temp Pulse Pulse Resp BP BP Pulse Ox 03/23/22 10:59 75 18 03/23/22 09:43 97.8 F 75 18 103/63 90 L 03/23/22 03:45 98.4 F 77 20 103/67 93 L Intake and Output 03/22/22 03/23/22 03/23/22 22:59 06:59 14:59 Intake Total 0 Output Total 200 Balance -200 Intake: Oral 0 Output: Urine 200 Other: Voiding Method Toilet Weight 61.235 kg PHYSICAL EXAMINATION VITAL SIGNS: Reviewed General: The patient is awake and alert, in no distress, and does not appear acutely ill. Skin: Skin is warm and dry and no rashes or lesions are noted. Eye: Pupils are equal, round and reactive to light, extra-ocular movements are intact; there is normal conjunctiva bilaterally. Ears, nose, mouth and throat: There are moist mucous membranes and no oral lesions. Neck: The neck is supple, there is no tenderness or JVD. Cardiovascular: There is irregular regular rate and rhythm. No murmur, rub or gallop is appreciated. Respiratory: Lungs are clear to auscultation, respirations are non-labored, breath sounds are equal. Gastrointestinal: Soft, non-distended, non-tender abdomen without masses or organomegaly noted. There is no rebound or guarding present. Bowel sounds are unremarkable. Back: There is no tenderness to palpation in the midline. There is no obvious deformity. Musculoskeletal: Normal ROM, no tenderness, There is no pedal edema. There is no calf tenderness or swelling. Extremities: Mild bilateral pitting edema Vascular: Femoral pulse is normal. Posterior tibial pulses are normal .Dorsalis pedis is palpable. Neurological: CN II-XII intact. There are no obvious motor or sensory deficits. Speech is normal. Psychiatric: Cooperative, appropriate mood & affect, normal judgment Results 03/23/22 04:17 03/23/22 04:17 Cardiac Enzymes 03/23/22 03/23/22 03/23/22 Range/Units 04:17 04:17 07:28 AST 36 (14-36) U/L Troponin I 1.510 H* 1.670 H* (0.000-0.034) ng/mL 03/23/22 Range/Units 09:48 AST (14-36) U/L Troponin I 1.620 H* (0.000-0.034) ng/mL Coagulation 03/23/22 Range/Units 04:17 PT 11.4 (9.0-12.0) sec APTT 24.1 (22.0-30.0) sec CBC 03/23/22 Range/Units 04:17 WBC 17.3 H (3.8-10.6) k/uL RBC 4.73 (3.80-5.40) m/uL Hgb 14.0 (11.4-16.0) gm/dL Hct 44.1 (34.0-46.0) % Plt Count 153 (150-450) k/uL Comprehensive Metabolic Panel 03/23/22 Range/Units 04:17 Sodium 137 (137-145) mmol/L Potassium 4.1 (3.5-5.1) mmol/L Chloride 100 (98-107) mmol/L Carbon Dioxide 24 (22-30) mmol/L BUN 18 H (7-17) mg/dL Creatinine 0.81 (0.52-1.04) mg/dL Glucose 125 H (74-99) mg/dL Calcium 9.3 (8.4-10.2) mg/dL AST 36 (14-36) U/L ALT 23 (4-34) U/L Alkaline Phosphatase 101 (38-126) U/L Total Protein 6.6 (6.3-8.2) g/dL Albumin 4.4 (3.5-5.0) g/dL Current Medications Generic Name Dose Route Start Last Admin Trade Name Freq PRN Reason Stop Dose Admin Alprazolam 0.5 mg 03/23/22 10:28 Alprazolam 0.5 Mg Tab PO TID PRN worsening anxiety Ascorbic Acid 500 mg 03/24/22 09:00 Ascorbic Acid 500 Mg Tab PO DAILY ATUL Cholecalciferol 125 mcg 03/24/22 09:00 Cholecalciferol 125 Mcg (5000 Iu) Tablet PO DAILY [facility] Cyanocobalamin 1,000 mcg 03/24/22 09:00 Cyanocobalamin 500 Mcg Tab PO DAILY [facility] Diazepam 2.5 mg 03/23/22 21:00 Diazepam 5 Mg Tab PO BID [facility] Donepezil HCl 10 mg 03/24/22 09:00 Donepezil 10 Mg Tab PO DAILY [facility] Fluoxetine HCl 60 mg 03/24/22 09:00 Fluoxetine Hcl 20 Mg Cap PO DAILY [facility] Heparin Sodium (Porcine) 0 unit 03/23/22 10:43 Heparin Sodium 1,000 Un/Ml (10ml Vl) IV PER PROTOCOL PRN Low PTT Protocol Sodium Chloride 1,000 mls @ 75 mls/hr 03/23/22 05:45 03/23/22 05:51 Saline 0.9% IV 75 mls/hr .[id number] ATUL Administration Heparin Sodium/Sodium Chloride 250 mls @ 7.348 mls/hr 03/23/22 10:45 03/23/22 11:27 25,000 unit/ Sodium Chloride IV 12 units/kg/hr .Q24H ATUL 7.348 mls/hr Administration Protocol 12 UNITS/KG/HR Levothyroxine Sodium 112 mcg 03/24/22 06:30 Levothyroxine 112 Mcg Tab PO DAILY@0630 [facility] Loratadine 10 mg 03/24/22 09:00 Loratadine 10 Mg Tab PO DAILY [facility] Memantine 10 mg 03/23/22 21:00 Memantine 10 Mg Tab PO BID [facility] Morphine Sulfate 4 mg 03/23/22 05:38 Morphine Sulfate 4 Mg/Ml Syringe IV Q4HR PRN Severe Pain (Scale 7 to 10) Naloxone HCl 0.2 mg 03/23/22 05:38 Naloxone 0.4 Mg/Ml 1 Ml Vial IV Q2M PRN Opioid Reversal Ondansetron HCl 4 mg 03/23/22 05:38 Ondansetron 4 Mg/2 Ml Vial IVP Q8HR PRN Nausea And Vomiting Trazodone HCl 50 mg 03/23/22 21:00 Trazodone Hcl 50 Mg Tab PO [facility] Intake and Output 03/22/22 03/23/22 03/23/22 22:59 06:59 14:59 Intake Total 0 Output Total 200 Balance -200 Intake: Oral 0 Output: Urine 200 Other: Voiding Method Toilet Weight 61.235 kg 03/23/22 04:17 03/23/22 04:17 Assessment and Plan Assessment: Non-ST elevated myocardial infarction Hyperlipidemia Plan: Start Toprol, aspirin, Lipitor, Imdur Obtain a 2-D echocardiogram Continue with heparin drip Discussed with family further treatment options Family is agreeable will order cardiac catheterization for Saturday, if not continue with optimal medical management Further recommendations based on clinical course The above impression and plan of care have been discussed and directed by the signing physician. Tasha Dorado, nurse practitioner, acting as scribe for signing physician.
[2022-03-23] MEDS: ISOSORBIDE MONONITRATE ER 30 MG TAB.ER.24H PO SCH (13:39)
[2022-03-23] MEDS: ATORVASTATIN 40 MG TAB PO SCH (13:39)
[2022-03-23] MEDS: METOPROLOL SUCCINATE (ER) 25 MG TAB.ER.24H PO SCH (13:39)
--- NOTE | 2022-03-23 19:54 | CA ---
Transthoracic Echo Report Name: Manju Guardado Age: 82 Gender: F : 1940 Exam Date: 03/23/2022 11:14 Exam Location: [facility] Ht (in): 68 Wt (lb): 135 Ordering Physician: Tasha Dorado Attending/Referring Phys: T Rail Turner Geovanna Macias RDCS Procedure CPT: Indications: positive trop Cardiac Hx: Technical Quality: Good Contrast 1: Total Dose (mL): Contrast 2: Total Dose (mL): MEASUREMENTS (Male / Female) Normal Values 2D ECHO LV Diastolic Diameter PLAX 3.6 cm 4.2 - 5.9 / 3.9 - 5.3 cm LV Systolic Diameter PLAX 2.2 cm IVS Diastolic Thickness 1.3 cm 0.6 - 1.0 / 0.6 - 0.9 cm LVPW Diastolic Thickness 1.3 cm 0.6 - 1.0 / 0.6 - 0.9 cm LV Relative Wall Thickness 0.7 RV Internal Dim ED PLAX 2.9 cm LA Systolic Diameter LX 2.7 cm 3.0 - 4.0 / 2.7 - 3.8 cm LA Volume 25.1 cm??? 18 - 58 / 22 - 52 cm??? M-MODE Aortic Root Diameter MM 3.5 cm MV E Point Septal Separation 0.6 cm AV Cusp Separation MM 2.0 cm DOPPLER AV Peak Velocity 125.6 cm/s AV Peak Gradient 6.3 mmHg AI Peak Velocity 272.5 cm/s AI Peak Gradient 29.7 mmHg AI Pressure Half Time 1593.0 ms MV Area PHT 1.5 cm??? Mitral E Point Velocity 76.6 cm/s Mitral A Point Velocity 140.2 cm/s Mitral E to A Ratio 0.5 MV Deceleration Time 508.2 ms MV E' Velocity 6.4 cm/s Mitral E to MV E' Ratio 12.1 TR Peak Velocity 273.3 cm/s TR Peak Gradient 29.9 mmHg Right Ventricular Systolic Press 44.9 mmHg FINDINGS Left Ventricle Left ventricular ejection fraction is estimated at 55-60 %. Left ventricular cavity size normal. Mild concentric left ventricular hypertrophy. Right Ventricle Normal right ventricular size and function. Mild pulmonary hypertension. Right Atrium Normal right atrial size. Left Atrium Normal left atrial size. Anurysmal septum Mitral Valve Mild prolapse of the anterior mitral valve leaflet. Aortic Valve Trileaflet aortic valve. Focal thickening of the aortic valve cusps. Trace to mild aortic regurgitation. Tricuspid Valve Structurally normal tricuspid valve. Pulmonic Valve Trace to mild pulmonic regurgitation. Pericardium Normal pericardium. No pericardial effusion. Aorta Normal size aortic root and proximal ascending aorta. CONCLUSIONS Normal LV size with preserved systolic function with mild concentric LVH. Mild aortic regurgitation and mild mitral and tricuspid regurgitation mild prolapse of anterior mitral leaflet no pericardial effusion Previewed by: Dr. Yuniel Ha MD (Electronically Signed) Final Date: 23 March 2022 19:53
[2022-03-23] MEDS: MEMANTINE 10 MG TAB PO SCH (20:33)
[2022-03-23] MEDS: traZODone HCL 50 MG TAB PO SCH (20:34)
[2022-03-23] MEDS: diazePAM 5 MG TAB PO SCH (20:34)
[2022-03-24] MEDS: HEPARIN SODIUM 1,000 UN/ML (10ML VL) IV PRN (01:33)
[2022-03-24] MEDS: SODIUM CHLORIDE 0.9% 1,000 ML IV SCH ×3 (06:11→20:50)
[2022-03-24] MEDS: LEVOTHYROXINE 112 MCG TAB PO SCH (06:46)
[2022-03-24 08:34] LABS: Basophils % (A) 0 %; Eosinophils # (A) 0.2 k/uL (0-0.7); Eosinophils % (A) 2 %; HCT 38.2 % (34.0-46.0); HGB 12.1 gm/dL (11.4-16.0); Lymphocytes % (A) 12 %; MCH 29.9 pg (25.0-35.0); MCHC 31.6 g/dL (31.0-37.0); MCV 94.6 fL (80.0-100.0); Mean Platelet Volume 10.1; Monocytes # (A) 0.4 k/uL (0-1.0); Monocytes % (A) 5 %; Neutrophils # (A) 6.9 k/uL (1.3-7.7); Neutrophils % (A) 80 %; Platelet Count 129 k/uL (150-450); RBC 4.04 m/uL (3.80-5.40); RDW 13.9 % (11.5-15.5); WBC 8.5 k/uL (3.8-10.6)
[2022-03-24 08:44] LABS: ALT 18 U/L (4-34); AST 32 U/L (14-36); African American GFR (CKD) >90 (>60 ml/min/1.73 sqM); Albumin 3.6 g/dL (3.5-5.0); Alkaline Phosphatase 81 U/L (38-126); Anion Gap 9 mmol/L; Blood Urea Nitrogen 15 mg/dL (7-17); Calcium 8.4 mg/dL (8.4-10.2); Carbon Dioxide 25 mmol/L (22-30); Chloride 100 mmol/L (98-107); Glucose 92 mg/dL (74-99); Non-African American GFR(CKD) 83 (>60 ml/min/1.73 sqM); Sodium 134 mmol/L (137-145); Total Bilirubin 0.9 mg/dL (0.2-1.3); Total Protein 5.6 g/dL (6.3-8.2)
[2022-03-24 08:53] LABS: Partial Thromboplastin Time 36.8 sec (22.0-30.0)
[2022-03-24] MEDS: DONEPEZIL 10 MG TAB PO SCH (09:17)
[2022-03-24] MEDS: LORATADINE 10 MG TAB PO SCH (09:17)
[2022-03-24] MEDS: ISOSORBIDE MONONITRATE ER 30 MG TAB.ER.24H PO SCH (09:17)
[2022-03-24] MEDS: ATORVASTATIN 40 MG TAB PO SCH (09:17)
[2022-03-24] MEDS: METOPROLOL SUCCINATE (ER) 25 MG TAB.ER.24H PO SCH (09:17)
[2022-03-24] MEDS: CYANOCOBALAMIN 500 MCG TAB PO SCH (09:17)
[2022-03-24] MEDS: FLUoxetine HCL 20 MG CAP PO SCH (09:17)
[2022-03-24] MEDS: diazePAM 5 MG TAB PO SCH ×2 (09:18→20:50)
[2022-03-24] MEDS: ASCORBIC ACID 500 MG TAB PO SCH (09:18)
[2022-03-24] MEDS: CHOLECALCIFEROL 125 MCG (5000 IU) TABLET PO SCH (09:18)
[2022-03-24] MEDS: MEMANTINE 10 MG TAB PO SCH ×2 (09:18→20:50)
[2022-03-24] MEDS: HEPARIN SOD,PORK IN 0.45% NACL 25,000 UNIT in 0.45% NACL 1 250ML.BAG IV SCH ×2 (11:37→23:03)
--- NOTE | 2022-03-24 14:03 | P.PN ---
Subjective Progress Note Date: 03/24/22 Principal diagnosis: weakness Patient is currently confused, she is unable to provide accurate history. She denied having any chest pain or shortness of breath. No nausea or vomiting. No fevers or chills. Objective - Vital Signs Vital signs: Vital Signs Temp 98.1 F 03/24/22 12:00 Pulse 51 L 03/24/22 12:00 Resp 18 03/24/22 12:12 BP 91/63 03/24/22 12:00 Pulse Ox 95 03/24/22 12:00 FiO2 Intake & Output 03/23/22 03/24/22 03/24/22 18:59 06:59 18:59 Intake Total 162.333 266.181 42.186 Output Total 200 Balance -37.667 266.181 42.186 Weight 61.235 kg Intake: Intake, IV Titration 44.333 266.181 42.186 Amount Heparin Sod,Pork in 0.45% 44.333 41.181 42.186 NaCl 25,000 unit In 0.45 % NaCl 1 250ml.bag @ 12 UNITS/KG/HR 7.348 mls/hr IV .Q24H ATUL Rx#: [id number] Sodium Chloride 0.9% 1, 225 000 ml @ 75 mls/hr IV . [id number] ATUL Rx#:[id number] Oral 118 Output: Urine 200 Other: Voiding Method Toilet Toilet # Voids 1 2 1 - Exam Constitutional: No acute distress, conversant, pleasant Eyes:Anicteric sclerae, moist conjunctiva, no lid-lag, PERRLA, ENMT: Oropharynx clear, no erythema, exudates Neck: Supple, FROM, no masses, or JVD, No carotid bruits, No thyromegaly Lungs: Clear to auscultation, Clear to percussion, Normal respiratory effort, no accessory muscle use Cardiovascular: Heart regular in rate and rhythm, No murmurs, gallops, or rubs, No peripheral edema Abdominal: Soft, Nontender, no guarding, rebound or rigidity, Normoactive bowel sounds, No hepatomegaly, No splenomegaly, No palpable mass Skin: Normal temperature, tone, texture, turgor, no induration, No subcutaneous nodules, No rash, lesions, No ulcers Extremities: No digital cyanosis, No clubbing, Pedal pulses intact and symmetrical, Radial pulses intact and symmetrical, No calf tenderness Psychiatric: Alert and oriented to self only Neuro: Muscles Strength 5/5 in all 4 extremities, Sensation to light touch grossly present throughout, Cranial nerves II-XII grossly intact, no focal sensory deficits - Labs CBC & Chem 7: 03/24/22 07:32 03/24/22 07:32 Labs: Abnormal Lab Results - Last 24 Hours (Table) 03/23/22 03/23/22 03/23/22 Range/Units 16:46 16:46 23:35 Plt Count (150-450) k/uL APTT 73.7 H 36.0 H (22.0-30.0) sec Sodium (137-145) mmol/L Total Protein (6.3-8.2) g/dL TSH 5.010 H (0.465-4.680) mIU/L 03/24/22 03/24/22 03/24/22 Range/Units 07:32 07:32 07:32 Plt Count 129 L (150-450) k/uL APTT 36.8 H (22.0-30.0) sec Sodium 134 L (137-145) mmol/L Total Protein 5.6 L (6.3-8.2) g/dL TSH (0.465-4.680) mIU/L Assessment and Plan Plan: Encephalopathy, acute on chronic secondary to dementia General weakness Likely secondary to myocardial infarction Elevated troponin, likely secondary to non-ST elevation PR Heparin drip Cardiology following Medical therapy started with toprol, aspirin, Lipitor, Imdur Echo Possible heart catheterization on Saturday depending on how aggressive the family wants to be Depression/anxiety, chronic Continue medications, she is chronically on benzodiazepines Continue Prozac and trazodone Hypothyroidism On replacement TSH borderline high, need to recheck in 1-2 months.
[2022-03-24] MEDS: ASPIRIN 81 MG PO SCH (15:45)
--- NOTE | 2022-03-24 15:57 | P.PN ---
Subjective HISTORY OF PRESENTING ILLNESS This is a pleasantly confused 82-year-old female who has a known history of hyperlipidemia, mild dementia, hypothyroidism. We have been consulted to see the patient for elevated troponins, 1.51, 1.67, 1.6 to. 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 Patient resides at [facility] and has a known history of dementia. She initially came in due to altered mental statusand is positive for a UTI. Her EKG shows sinus rhythm with PVCs a right bundle-branch block and a controlled heart rate in the 70s. Her chest x-ray shows mild pulmonary fibrosis and mild cardiomegaly. She is resting comfortably in bed in no signs of acute distress. She denies chest pain, or increased shortness of breath. Patient is hemodynamically stable. She is unsure as to why she was initially brought in. Will start patient on beta mary, Lipitor Imdur and aspirin. Continue with heparin drip. Will obtain a 2-D echocardiogram. Will discuss with patient's family regarding further treatments. Patient will require a cardiac catheterization on Saturday. If the family does not wish to forego cardiac catheterization will c ontinue with optimal medical management. 03/24 Patient seen and examined. Patient denies any chest pain or pressure. She remains on heparin drip. Echocardiogram shows preserved EF 55-60%. PHYSICAL EXAMINATION Vital signs reviewed. CONSTITUTIONAL: No apparent distress. HEENT: Head is normocephalic. Pupils are equal, round. Sclerae anicteric. Mucous membranes of the mouth are moist. No JVD. No carotid bruit. CHEST EXAMINATION: Lungs are clear to auscultation. No chest wall tenderness is noted on palpation or with deep breathing. HEART EXAMINATION: Regular rate and rhythm. S1, S2 heard. No murmurs, gallops or rub. ABDOMEN: Soft, nontender. Positive bowel sounds. EXTREMITIES: 2+ peripheral pulses, no lower extremity edema and no calf tenderness. NEUROLOGIC EXAMINATION: Patient is awake, alert , poor recall ASSESSMENT Non-ST elevated myocardial infarction Hyperlipidemia Mild dementia Hypertension Altered mental status Fatigue Plan: Continue Toprol, aspirin, Lipitor, Imdur Echocardiogram shows preserved EF Continue with heparin drip Previous documentation of possible heart catheterization on Saturday. Continue heparin drip for now and further discussion tomorrow regarding possible heart catheterization versus medical therapy. Objective - Vital Signs Vital signs: Vital Signs Temp 98.1 F 09/10/22 12:00 Pulse 51 L 03/24/22 12:00 Resp 18 03/24/22 12:12 BP 91/63 03/24/22 12:00 Pulse Ox 95 03/24/22 12:00 FiO2 Intake & Output 03/23/22 03/24/22 03/24/22 18:59 06:59 18:59 Intake Total 162.333 266.181 42.186 Output Total 200 Balance -37.667 266.181 42.186 Weight 61.235 kg Intake: Intake, IV Titration 44.333 266.181 42.186 Amount Heparin Sod,Pork in 0.45% 44.333 41.181 42.186 NaCl 25,000 unit In 0.45 % NaCl 1 250ml.bag @ 12 UNITS/KG/HR 7.348 mls/hr IV .Q24H [facility] Rx#: [id number] Sodium Chloride 0.9% 1, 225 000 ml @ 75 mls/hr IV . [id number] [facility] Rx#:[id number] Oral 118 Output: Urine 200 Other: Voiding Method Toilet Toilet # Voids 1 2 1 - Labs CBC & Chem 7: 03/24/22 07:32 03/24/22 07:32 Labs: Abnormal Lab Results - Last 24 Hours (Table) 03/23/22 03/23/22 03/23/22 Range/Units 16:46 16:46 23:35 Plt Count (150-450) k/uL APTT 73.7 H 36.0 H (22.0-30.0) sec Sodium (137-145) mmol/L Total Protein (6.3-8.2) g/dL TSH 5.010 H (0.465-4.680) mIU/L 03/24/22 03/24/22 03/24/22 Range/Units 07:32 07:32 07:32 Plt Count 129 L (150-450) k/uL APTT 36.8 H (22.0-30.0) sec Sodium 134 L (137-145) mmol/L Total Protein 5.6 L (6.3-8.2) g/dL TSH (0.465-4.680) mIU/L
[2022-03-24] MEDS: traZODone HCL 50 MG TAB PO SCH (20:50)
[2022-03-25] MEDS: LEVOTHYROXINE 112 MCG TAB PO SCH (05:34)
[2022-03-25] MEDS: MEMANTINE 10 MG TAB PO SCH ×2 (08:51→20:32)
[2022-03-25] MEDS: CYANOCOBALAMIN 500 MCG TAB PO SCH (08:51)
[2022-03-25] MEDS: METOPROLOL SUCCINATE (ER) 25 MG TAB.ER.24H PO SCH (08:51)
[2022-03-25] MEDS: DONEPEZIL 10 MG TAB PO SCH (08:51)
[2022-03-25] MEDS: FLUoxetine HCL 20 MG CAP PO SCH (08:51)
[2022-03-25] MEDS: ASPIRIN 81 MG PO SCH (08:51)
[2022-03-25] MEDS: CHOLECALCIFEROL 125 MCG (5000 IU) TABLET PO SCH (08:51)
[2022-03-25] MEDS: ASCORBIC ACID 500 MG TAB PO SCH (08:52)
[2022-03-25] MEDS: ATORVASTATIN 40 MG TAB PO SCH (08:52)
[2022-03-25] MEDS: diazePAM 5 MG TAB PO SCH ×2 (08:52→20:32)
[2022-03-25] MEDS: ISOSORBIDE MONONITRATE ER 30 MG TAB.ER.24H PO SCH (08:52)
[2022-03-25] MEDS: LORATADINE 10 MG TAB PO SCH (08:52)
--- NOTE | 2022-03-25 11:45 | P.PN ---
Subjective Progress Note Date: 03/25/22 Principal diagnosis: weakness Secondary to dementia patient is not able to provide accurate history. No overnight events. Objective - Vital Signs Vital signs: Vital Signs Temp 98 F 03/25/22 08:00 Pulse 55 L 03/25/22 08:00 Resp 18 03/25/22 08:00 BP 133/69 03/25/22 08:00 Pulse Ox 94 L 03/25/22 08:00 FiO2 Intake & Output 03/24/22 03/25/22 03/25/22 18:59 06:59 18:59 Intake Total 42.186 324.586 Balance 42.186 324.586 Intake: Intake, IV Titration 42.186 104.586 Amount Heparin Sod,Pork in 0.45% 42.186 104.586 NaCl 25,000 unit In 0.45 % NaCl 1 250ml.bag @ 12 UNITS/KG/HR 7.348 mls/hr IV .Q24H [facility] Rx#: [id number] Oral 220 Other: Voiding Method Toilet # Voids 1 - Exam Constitutional: No acute distress, conversant, pleasant Eyes:Anicteric sclerae, moist conjunctiva, no lid-lag, PERRLA, ENMT: Oropharynx clear, no erythema, exudates Neck: Supple, FROM, no masses, or JVD, No carotid bruits, No thyromegaly Lungs: Clear to auscultation, Clear to percussion, Normal respiratory effort, no accessory muscle use Cardiovascular: Heart regular in rate and rhythm, No murmurs, gallops, or rubs, No peripheral edema Abdominal: Soft, Nontender, no guarding, rebound or rigidity, Normoactive bowel sounds, No hepatomegaly, No splenomegaly, No palpable mass Skin: Normal temperature, tone, texture, turgor, no induration, No subcutaneous nodules, No rash, lesions, No ulcers Extremities: No digital cyanosis, No clubbing, Pedal pulses intact and symmetrical, Radial pulses intact and symmetrical, No calf tenderness Psychiatric: Alert and oriented to self only Neuro: Muscles Strength 5/5 in all 4 extremities, Sensation to light touch grossly present throughout, Cranial nerves II-XII grossly intact, no focal sensory deficits - Labs CBC & Chem 7: 03/24/22 07:32 03/24/22 07:32 Labs: Abnormal Lab Results - Last 24 Hours (Table) 03/25/22 03/25/22 Range/Units 00:26 07:47 APTT 32.9 H 58.5 H (22.0-30.0) sec Assessment and Plan Plan: Encephalopathy, acute on chronic secondary to dementia General weakness Likely secondary to myocardial infarction Elevated troponin, likely secondary to non-ST elevation NV Heparin drip Cardiology following Medical therapy started with toprol, aspirin, Lipitor, Imdur Echo without significant abnormalities, ejection fraction normal. Possible heart catheterization on Saturday depending on how aggressive the family wants to be Depression/anxiety, chronic Continue medications, she is chronically on benzodiazepines Continue Prozac and trazodone Hypothyroidism On replacement TSH borderline high, need to recheck in 1-2 months. I called her son who is living in another state, left a voicemail, awaiting call back.
[2022-03-25] MEDS: SODIUM CHLORIDE 0.9% 1,000 ML IV SCH (12:21)
--- NOTE | 2022-03-25 15:36 | P.PN ---
Subjective HISTORY OF PRESENTING ILLNESS This is a pleasantly confused 82-year-old female who has a known history of hyperlipidemia, mild dementia, hypothyroidism. We have been consulted to see the patient for elevated troponins, 1.51, 1.67, 1.6 to. 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 Patient resides at [facility] and has a known history of dementia. She initially came in due to altered mental statusand is positive for a UTI. Her EKG shows sinus rhythm with PVCs a right bundle-branch block and a controlled heart rate in the 70s. Her chest x-ray shows mild pulmonary fibrosis and mild cardiomegaly. She is resting comfortably in bed in no signs of acute distress. She denies chest pain, or increased shortness of breath. Patient is hemodynamically stable. She is unsure as to why she was initially brought in. Will start patient on beta mary, Lipitor Imdur and aspirin. Continue with heparin drip. Will obtain a 2-D echocardiogram. Will discuss with patient's family regarding further treatments. Patient will require a cardiac catheterization on Saturday. If the family does not wish to forego cardiac catheterization will c ontinue with optimal medical management. 03/24 Patient seen and examined. Patient denies any chest pain or pressure. She remains on heparin drip. Echocardiogram shows preserved EF 55-60%. 03/25 Patient seen and examined. Patient denies any chest pain or pressure. Started on metoprolol yesterday and has been tolerating well. PHYSICAL EXAMINATION Vital signs reviewed. CONSTITUTIONAL: No apparent distress. HEENT: Head is normocephalic. Pupils are equal, round. Sclerae anicteric. Mucous membranes of the mouth are moist. No JVD. No carotid bruit. CHEST EXAMINATION: Lungs are clear to auscultation. No chest wall tenderness is noted on palpation or with deep breathing. HEART EXAMINATION: Regular rate and rhythm. S1, S2 heard. No murmurs, gallops or rub. ABDOMEN: Soft, nontender. Positive bowel sounds. EXTREMITIES: 2+ peripheral pulses, no lower extremity edema and no calf tenderness. NEUROLOGIC EXAMINATION: Patient is awake, alert , poor recall ASSESSMENT Non-ST elevated myocardial infarction Hyperlipidemia Mild dementia Hypertension Altered mental status Fatigue Plan: Continue Toprol, aspirin, Lipitor, Imdur Echocardiogram shows preserved EF Continue with heparin drip Previous documentation of possible heart catheterization on Saturday. Continue heparin drip for now and further decision regarding possible heart catheterization versus medical therapy. If family desiring LHC we can proceed with LHC tomorrow and if not, likely DC home tomorrow on medical therapy without any angina type symptoms. Objective - Vital Signs Vital signs: Vital Signs Temp 97.7 F 03/25/22 12:00 Pulse 51 L 03/25/22 12:00 Resp 18 03/25/22 12:06 BP 117/60 03/25/22 12:00 Pulse Ox 95 03/25/22 12:00 FiO2 Intake & Output 03/24/22 03/25/22 03/25/22 18:59 06:59 18:59 Intake Total 42.186 324.586 Balance 42.186 324.586 Intake: Intake, IV Titration 42.186 104.586 Amount Heparin Sod,Pork in 0.45% 42.186 104.586 NaCl 25,000 unit In 0.45 % NaCl 1 250ml.bag @ 12 UNITS/KG/HR 7.348 mls/hr IV .Q24H [facility] Rx#: [id number] Oral 220 Other: Voiding Method Toilet # Voids 1 1 - Labs CBC & Chem 7: 03/24/22 07:32 03/24/22 07:32 Labs: Abnormal Lab Results - Last 24 Hours (Table) 03/25/22 03/25/22 Range/Units 00:26 07:47 APTT 32.9 H 58.5 H (22.0-30.0) sec
[2022-03-25] MEDS: traZODone HCL 50 MG TAB PO SCH (20:32)
[2022-03-26] MEDS: LEVOTHYROXINE 112 MCG TAB PO SCH (05:41)
[2022-03-26] MEDS: HEPARIN SOD,PORK IN 0.45% NACL 25,000 UNIT in 0.45% NACL 1 250ML.BAG IV SCH (05:42)
[2022-03-26] MEDS: SODIUM CHLORIDE 0.9% 1,000 ML IV SCH ×2 (05:44→14:25)
[2022-03-26] MEDS: diazePAM 5 MG TAB PO SCH ×2 (09:15→20:00)
[2022-03-26] MEDS: HEPARIN SODIUM 1,000 UN/ML (10ML VL) IV PRN (09:16)
[2022-03-26] MEDS: CYANOCOBALAMIN 500 MCG TAB PO SCH (09:17)
[2022-03-26] MEDS: CHOLECALCIFEROL 125 MCG (5000 IU) TABLET PO SCH (09:17)
[2022-03-26] MEDS: ISOSORBIDE MONONITRATE ER 30 MG TAB.ER.24H PO SCH (09:17)
[2022-03-26] MEDS: ASCORBIC ACID 500 MG TAB PO SCH (09:17)
[2022-03-26] MEDS: FLUoxetine HCL 20 MG CAP PO SCH (09:17)
[2022-03-26] MEDS: METOPROLOL SUCCINATE (ER) 25 MG TAB.ER.24H PO SCH (09:17)
[2022-03-26] MEDS: DONEPEZIL 10 MG TAB PO SCH (09:17)
[2022-03-26] MEDS: CLOPIDOGREL 75 MG TAB PO SCH (09:18)
[2022-03-26] MEDS: MEMANTINE 10 MG TAB PO SCH ×2 (09:18→20:00)
[2022-03-26] MEDS: ATORVASTATIN 40 MG TAB PO SCH (09:18)
[2022-03-26] MEDS: ASPIRIN 81 MG PO SCH (09:18)
[2022-03-26] MEDS: LORATADINE 10 MG TAB PO SCH (09:18)
--- NOTE | 2022-03-26 09:55 | P.PN ---
Subjective This is a pleasantly confused 82-year-old female who has a known history of hyperlipidemia, mild dementia, hypothyroidism. We have been consulted to see the patient for elevated troponins, 1.51, 1.67, 1.6 to. Patient does not follow with a cash applications clerk. Patient resides at [facility] and has a known history of dementia. She initially came in due to altered mental statusand is positive for a UTI. Her EKG shows sinus rhythm with PVCs a right bundle-branch block and a controlled heart rate in the 70s. Her chest x-ray shows mild pulmonary fibrosis and mild cardiomegaly. Echocardiogram showed preserved EF 55-60%. 03/26 Patient seen and examined. Patient denies any chest pain or pressure. Tolerating medications well. No complaints. Vital signs are stable. PHYSICAL EXAMINATION Vital signs reviewed. CONSTITUTIONAL: No apparent distress. HEENT: Head is normocephalic. Pupils are equal, round. Sclerae anicteric. Mucous membranes of the mouth are moist. No JVD. No carotid bruit. CHEST EXAMINATION: Lungs are clear to auscultation. No chest wall tenderness is noted on palpation or with deep breathing. HEART EXAMINATION: Regular rate and rhythm. S1, S2 heard. No murmurs, gallops or rub. ABDOMEN: Soft, nontender. Positive bowel sounds. EXTREMITIES: 2+ peripheral pulses, no lower extremity edema and no calf tenderness. NEUROLOGIC EXAMINATION: Patient is awake, alert , poor recall ASSESSMENT Non-ST elevated myocardial infarction Hyperlipidemia Mild dementia Hypertension Altered mental status Fatigue PLAN Add Plavix 75mg Daily Stop IV heparin Continue Toprol, aspirin, Lipitor, Imdur Echocardiogram shows preserved EF Patient was discussed with Dr Shipman regarding possible LHC over the weekend, no significant angina and preserved EF with some dementia we will continue with medical therapy. From a cardiology perspective, we will continue medical therapy and patient stable for discharge home. Follow up outpatient with Dr. Shipman Nurse practitioner note has been reviewed by physician. Signing provider agrees with the documented findings, assessment, and plan of care. Objective - Vital Signs Vital signs: Vital Signs Temp 98.4 F 03/26/22 07:51 Pulse 55 L 03/26/22 07:51 Resp 14 03/26/22 07:51 BP 118/55 03/26/22 07:51 Pulse Ox 95 03/26/22 07:51 FiO2 Intake & Output 03/25/22 03/26/22 03/26/22 18:59 06:59 18:59 Intake Total 235.231 32.064 Balance 235.231 32.064 Intake: Intake, IV Titration 235.231 32.064 Amount Heparin Sod,Pork in 0.45% 235.231 32.064 NaCl 25,000 unit In 0.45 % NaCl 1 250ml.bag @ 12 UNITS/KG/HR 7.348 mls/hr IV .Q24H [facility] Rx#: [id number] Other: Voiding Method Bedside Commode # Voids 1 2 - Labs CBC & Chem 7: 03/24/22 07:32 03/24/22 07:32 Labs: Abnormal Lab Results - Last 24 Hours (Table) 03/26/22 Range/Units 06:43 APTT 43.3 H (22.0-30.0) sec
--- NOTE | 2022-03-26 13:51 | P.PN ---
Subjective Progress Note Date: 03/26/22 Principal diagnosis: acute encephalopathy Hospital Course: 82-year-old female with history of dementia and anxiety presented from assisted living facility with generalized weakness and altered mental status. Patient was admitted for acute encephalopathy, elevated troponin. Mental status now at baseline. Patient remains chest pain-free, will have an outpatient follow-up with cardiology. Pending physical therapy evaluation for discharge likely home. Subjective: Patient seen and examined at bedside. No acute events overnight. She denies any chest pain, shortness of breath, abdominal pain. She claims that she has in getting out of the bed occasionally. Pertinent positives and negatives as discussed above, a complete review of systems was performed and all other systems are negative. Vitals Signs Reviewed. General: nontoxic, no distress, appears at stated age Derm: warm, dry Head: atraumatic, normocephalic, symmetric Eyes: EOMI, no lid lag, anicteric sclera Mouth: no lip lesion, mucus membranes moist Cardiovascular: S1S2 reg, no murmur Lungs: CTA bilateral, no rhonchi, no rales , no accessory muscle use Abdominal: soft, nontender to palpation, no guarding, no appreciable organomegaly Ext: no gross muscle atrophy, no edema, no contractures Neuro: CN II-XI grossly intact, no focal neuro deficits Psych: Alert, oriented 1(only to person), appropriate affect Assessment and Plan: Encephalopathy, acute on chronic in the setting of dementia Generalized weakness - Likely secondary to acute GA Elevated troponin likely secondary to demand ischemia -No active chest pain -Cardiology consulted -Echo showed LVEF of 55-60% with mild concentric LVH -Patient was initially on IV heparin drip, now discontinued -Initial plan was to do a left heart cath, but cardiology recommending medical therapy for now and outpatient follow-up -On aspirin and Plavix -Metoprolol, Lipitor, Imdur Hypothyroidism -Continue levothyroxine -Recheck TSH in 1-2 months Polypharmacy -Patient chronically on high-risk medications -Consider outpatient follow-up and discontinuing medications like benzodiazepine Chronic medical problems: -Depression/anxiety -Hyperlipidemia -Continue home medications Debility/weakness -PT evaluation F: Oral E: Replete as needed N: Regular A: As tolerated DVT ppx: Lovenox Code status: Full code Anticipated discharge place: Likely home Anticipated discharge time: Tomorrow Objective - Vital Signs Vital signs: Vital Signs Temp 98.4 F 03/26/22 07:51 Pulse 55 L 03/26/22 07:51 Resp 14 03/26/22 07:51 BP 118/55 03/26/22 07:51 Pulse Ox 95 03/26/22 07:51 FiO2 Intake & Output 03/25/22 03/26/22 03/26/22 18:59 06:59 18:59 Intake Total 235.231 32.064 Balance 235.231 32.064 Intake: Intake, IV Titration 235.231 32.064 Amount Heparin Sod,Pork in 0.45% 235.231 32.064 NaCl 25,000 unit In 0.45 % NaCl 1 250ml.bag @ 12 UNITS/KG/HR 7.348 mls/hr IV .Q24H [facility] Rx#: [id number] Other: Voiding Method Bedside Commode Toilet Bedside Commode # Voids 1 2 1 - Labs CBC & Chem 7: 03/24/22 07:32 03/24/22 07:32 Labs: Abnormal Lab Results - Last 24 Hours (Table) 03/26/22 Range/Units 06:43 APTT 43.3 H (22.0-30.0) sec
[2022-03-26] MEDS: traZODone HCL 50 MG TAB PO SCH (20:00)
[2022-03-27 04:16] VITALS: TEMP 98.5
[2022-03-27] MEDS: LEVOTHYROXINE 112 MCG TAB PO SCH (06:06)
[2022-03-27] MEDS: SODIUM CHLORIDE 0.9% 1,000 ML IV SCH (06:06)
[2022-03-27 07:47] VITALS: RESP 15
[2022-03-27] MEDS ORDERED: ENOXAPARIN 40 MG/0.4 ML SYRINGE SQ SCH (09:00)
[2022-03-27] MEDS: CLOPIDOGREL 75 MG TAB PO SCH (09:01)
[2022-03-27] MEDS: FLUoxetine HCL 20 MG CAP PO SCH (09:01)
[2022-03-27] MEDS: CYANOCOBALAMIN 500 MCG TAB PO SCH (09:01)
[2022-03-27] MEDS: ASCORBIC ACID 500 MG TAB PO SCH (09:01)
[2022-03-27] MEDS: LORATADINE 10 MG TAB PO SCH (09:02)
[2022-03-27] MEDS: ISOSORBIDE MONONITRATE ER 30 MG TAB.ER.24H PO SCH (09:02)
[2022-03-27] MEDS: METOPROLOL SUCCINATE (ER) 25 MG TAB.ER.24H PO SCH (09:02)
[2022-03-27] MEDS: DONEPEZIL 10 MG TAB PO SCH (09:02)
[2022-03-27] MEDS: CHOLECALCIFEROL 125 MCG (5000 IU) TABLET PO SCH (09:02)
[2022-03-27] MEDS: ASPIRIN 81 MG PO SCH (09:02)
[2022-03-27] MEDS: ATORVASTATIN 40 MG TAB PO SCH (09:02)
[2022-03-27] MEDS: MEMANTINE 10 MG TAB PO SCH (09:02)
[2022-03-27] MEDS: diazePAM 5 MG TAB PO SCH (09:05)
[2022-03-27 11:41] VITALS: BP 122/62; PULSE 53
--- NOTE | 2022-03-27 12:06 | P.DS ---
Providers Date of admission: 03/23/22 05:39 Expected date of discharge: 03/27/22 Attending physician: Vandana Cabrera MD Consults: 03/23/22 05:38 Consult Physician Routine Consulting Provider: Venancio Jenkins Consult Reason/Comments: elevTrop Do you want consulting provider notified?: Yes Primary care physician: Stated None Hospital Course: Discharge Diagnosis: Acute on chronic encephalopathy Advanced dementia Non-ST elevation NV Hypothyroidism Polypharmacy Anxiety Dyslipidemia Debility/weakness Hospital Course: 82-year-old female with history of dementia and anxiety presented from assisted living facility with generalized weakness and altered mental status. Patient was admitted for acute encephalopathy, elevated troponin. Mental status now at baseline. Patient remains chest pain-free, will have an outpatient follow-up with cardiology. Patient has been started on medical therapy for possible coronary artery disease including aspirin and Plavix and atorvastatin. She is also started on antianginal therapy with Imdur and metoprolol. Her echocardiogram showed an LVEF of 50-60% with mild concentric LVH. Cardiology may plan to do a catheterization as an outpatient. Patient is at high risk for falls given she is on both Valium and Xanax, and trazodone. PCP should consider slowly discontinuing these high risk medications. Patient seen and examined at bedside. Vital signs reviewed and stable. General: nontoxic, no distress, appears at stated age Derm: warm, dry Head: atraumatic, normocephalic, symmetric Eyes: EOMI, no lid lag, anicteric sclera Mouth: no lip lesion, mucus membranes moist Cardiovascular: S1S2 reg, no murmur Lungs: CTA bilateral, no rhonchi, no rales , no accessory muscle use Abdominal: soft, nontender to palpation, no guarding, no appreciable organomegaly Ext: no gross muscle atrophy, no edema, no contractures Neuro: CN II-XI grossly intact, no focal neuro deficits Psych: Alert, oriented 1(only to person), appropriate affect A total of 36 minutes of time were spent preparing this complex discharge summary. Patient was discharged on 03/27/22 at 10: 36AM. Patient Condition at Discharge: Fair Plan - Discharge Summary Discharge Rx Participant: No New Discharge Prescriptions: New Atorvastatin [Lipitor] 40 mg PO DAILY #90 tab Clopidogrel [Plavix] 75 mg PO DAILY #90 tab Aspirin 81 mg PO DAILY #90 tab Isosorbide Mononitrate ER [Imdur] 30 mg PO DAILY #90 tab Metoprolol Succinate (ER) [Toprol XL] 25 mg PO DAILY #90 tab Continue Cyanocobalamin (Vitamin B-12) [Vitamin B-12] 1,000 mcg PO DAILY Cholecalciferol [Vitamin D3 (125 Mcg = 5000 Iu)] 125 mcg PO DAILY Ascorbic Acid [Vitamin C] 500 mg PO DAILY Loratadine [Claritin] 10 mg PO DAILY Levothyroxine Sodium [Synthroid] 112 mcg PO DAILY FLUoxetine HCL [Sarafem] 60 mg PO DAILY Zinc Gluconate [Zinc] 50 mg PO DAILY ALPRAZolam [Xanax] 0.5 mg PO TID PRN PRN Reason: worsening anxiety traZODone HCL [Desyrel] 50 mg PO HS Memantine [Namenda] 10 mg PO BID diazePAM [Valium] 2.5 mg PO BID Donepezil [Aricept] 10 mg PO DAILY Bacitracin Zinc Oint 1 applic TOPICAL DAILY PRN PRN Reason: irritation Bismuth Subsalicylate [Pepto-Bismol] 30 ml PO Q30M PRN MDD 240 ml PRN Reason: Gi Upset Discharge Medication List ALPRAZolam [Xanax] 0.5 mg PO TID PRN 03/23/22 [History] Ascorbic Acid [Vitamin C] 500 mg PO DAILY 03/23/22 [History] Bacitracin Zinc Oint 1 applic TOPICAL DAILY PRN 03/23/22 [History] Bismuth Subsalicylate [Pepto-Bismol] 30 ml PO Q30M PRN MDD 240 ml 03/23/22 [History] Cholecalciferol [Vitamin D3 (125 Mcg = 5000 Iu)] 125 mcg PO DAILY 03/23/22 [History] Cyanocobalamin (Vitamin B-12) [Vitamin B-12] 1,000 mcg PO DAILY 03/23/22 [History] Donepezil [Aricept] 10 mg PO DAILY 03/23/22 [History] FLUoxetine HCL [Sarafem] 60 mg PO DAILY 03/23/22 [History] Levothyroxine Sodium [Synthroid] 112 mcg PO DAILY 03/23/22 [History] Loratadine [Claritin] 10 mg PO DAILY 03/23/22 [History] Memantine [Namenda] 10 mg PO BID 03/23/22 [History] Zinc Gluconate [Zinc] 50 mg PO DAILY 03/23/22 [History] diazePAM [Valium] 2.5 mg PO BID 03/23/22 [History] traZODone HCL [Desyrel] 50 mg PO HS 03/23/22 [History] Aspirin 81 mg PO DAILY #90 tab 03/26/22 [Rx] Atorvastatin [Lipitor] 40 mg PO DAILY #90 tab 03/26/22 [Rx] Clopidogrel [Plavix] 75 mg PO DAILY #90 tab 03/26/22 [Rx] Isosorbide Mononitrate ER [Imdur] 30 mg PO DAILY #90 tab 03/26/22 [Rx] Metoprolol Succinate (ER) [Toprol XL] 25 mg PO DAILY #90 tab 03/26/22 [Rx] Follow up Appointment(s)/Referral(s): None,Stated [Primary Care Provider] - 1-2 days Henrik Shipman MD [STAFF PHYSICIAN] - 1 Week (Office will call pts daughter to keith appointment. ) Patient Instructions/Handouts: Heart Attack (DC), Dehydration (DC), Weakness (DC) Activity/Diet/Wound Care/Special Instructions: Please see PCP within 1 week. Discharge Disposition: HOME WITH HOME HEALTH SERVICES
== END 2022-03-27 13:00 | disposition home health service (06) | DRG 281 ==
LOC: EC 03:42 → 3SCARD 05:39
PROVIDERS: ADMIT Internal Medicine; ATTEND Internal Medicine
DX: I21.4 Non-ST elevation (NSTEMI) myocardial infarction (principal); G93.40 Encephalopathy, unspecified; R64 Cachexia; N39.0 Urinary tract infection, site not specified; I95.9 Hypotension, unspecified; I45.10 Unspecified right bundle-branch block; E86.0 Dehydration; F03.90 Unspecified dementia, unspecified severity, without behavioral disturbance, psychotic disturbance, mood disturbance, and anxiety; I11.9 Hypertensive heart disease without heart failure; J84.10 Pulmonary fibrosis, unspecified; E78.5 Hyperlipidemia, unspecified; E03.9 Hypothyroidism, unspecified; F41.9 Anxiety disorder, unspecified; F32.A Depression, unspecified; M19.042 Primary osteoarthritis, left hand; M19.041 Primary osteoarthritis, right hand; K59.00 Constipation, unspecified; K57.90 Diverticulosis of intestine, part unspecified, without perforation or abscess without bleeding; R26.2 Difficulty in walking, not elsewhere classified; Z79.890 Hormone replacement therapy; Z79.899 Other long term (current) drug therapy; Z91.81 History of falling; Z87.891 Personal history of nicotine dependence; Z88.5 Allergy status to narcotic agent; Z88.2 Allergy status to sulfonamides; Z82.49 Family history of ischemic heart disease and other diseases of the circulatory system
CPT/HCPCS: 36415; 71046; 80053; 81001; 84443; 84484; 85025; 85610; 85730; 93005; 93306; 96361; 96365; 96366; 96375; 99291

== ENCOUNTER 2022-04-19 10:52 | Inpatient (IN) | payer MEDICARE ==
[2022-04-19 12:57] LABS: Basophils % (A) 0 %; Eosinophils # (A) 0.2 k/uL (0-0.7); Eosinophils % (A) 3 %; HCT 40.7 % (34.0-46.0); HGB 13.2 gm/dL (11.4-16.0); Lymphocytes # (A) 1.2 k/uL (1.0-4.8); Lymphocytes % (A) 23 %; MCH 29.4 pg (25.0-35.0); MCHC 32.3 g/dL (31.0-37.0); MCV 90.9 fL (80.0-100.0); Mean Platelet Volume 9.5; Monocytes # (A) 0.4 k/uL (0-1.0); Monocytes % (A) 7 %; Neutrophils # (A) 3.5 k/uL (1.3-7.7); Neutrophils % (A) 64 %; Platelet Count 185 k/uL (150-450); RBC 4.48 m/uL (3.80-5.40); RDW 13.5 % (11.5-15.5); WBC 5.4 k/uL (3.8-10.6)
[2022-04-19 13:11] LABS: ALT 28 U/L (4-34); AST 28 U/L (14-36); African American GFR (CKD) >90 (>60 ml/min/1.73 sqM); Albumin 3.8 g/dL (3.5-5.0); Alkaline Phosphatase 131 U/L (38-126); Anion Gap 7 mmol/L; Blood Urea Nitrogen 11 mg/dL (7-17); Calcium 8.8 mg/dL (8.4-10.2); Carbon Dioxide 31 mmol/L (22-30); Chloride 98 mmol/L (98-107); Glucose 95 mg/dL (74-99); Non-African American GFR(CKD) 82 (>60 ml/min/1.73 sqM); Potassium 4.4 mmol/L (3.5-5.1); Sodium 136 mmol/L (137-145); Total Bilirubin 0.7 mg/dL (0.2-1.3); Total Protein 5.9 g/dL (6.3-8.2)
[2022-04-19 13:21] LABS: Partial Thromboplastin Time 24.1 sec (22.0-30.0); Prothrombin Time 10.9 sec (9.0-12.0)
[2022-04-19] MEDS: SODIUM CHLORIDE 0.9% 1,000 ML IV SCH (13:56)
--- NOTE | 2022-04-19 14:06 | ED ---
General Adult HPI - General Chief complaint: Fall Stated complaint: Follow up Source: patient, EMS Mode of arrival: EMS Limitations: no limitations - History of Present Illness Initial comments: 82-year-old female presents to the emergency department from [facility]. Her cousin is at bedside and provides the history. States that she has just recently moved into the [facility] of [facility]. They state that she has had failure to thrive. She has had a poor appetite and worsening confusion. She does not have a physician. Family who lives out of [facility] was interested in moving her over to [facility]. There is a bed available however it was recommended that she be hospitalized for evaluation and placement. Patient is a poor historian. Denies any pain. No chest pain or shortness of breath. No abdominal pain. Generalized weakness and has been using a wheelchair. States the patient does not ambulate. Remainder of HPI is limited due to this - Related Data Home Medications Medication Instructions Recorded Confirmed ALPRAZolam [Xanax] 0.5 mg PO TID PRN 03/23/22 03/23/22 Ascorbic Acid [Vitamin C] 500 mg PO DAILY 03/23/22 03/23/22 Bacitracin Zinc Oint 1 applic TOPICAL DAILY PRN 03/23/22 03/23/22 Bismuth Subsalicylate 30 ml PO Q30M PRN MDD 240 ml 03/23/22 03/23/22 [Pepto-Bismol] Cholecalciferol [Vitamin D3 (125 125 mcg PO DAILY 03/23/22 03/23/22 Mcg = 5000 Iu)] Cyanocobalamin (Vitamin B-12) 1,000 mcg PO DAILY 03/23/22 03/23/22 [Vitamin B-12] Donepezil [Aricept] 10 mg PO DAILY 03/23/22 03/23/22 FLUoxetine HCL [Sarafem] 60 mg PO DAILY 03/23/22 03/23/22 Levothyroxine Sodium [Synthroid] 112 mcg PO DAILY 03/23/22 03/23/22 Loratadine [Claritin] 10 mg PO DAILY 03/23/22 03/23/22 Memantine [Namenda] 10 mg PO BID 03/23/22 03/23/22 Zinc Gluconate [Zinc] 50 mg PO DAILY 03/23/22 03/23/22 diazePAM [Valium] 2.5 mg PO BID 03/23/22 03/23/22 traZODone HCL [Desyrel] 50 mg PO HS 03/23/22 03/23/22 Previous Rx's Medication Instructions Recorded Aspirin 81 mg PO DAILY #90 tab 03/26/22 Atorvastatin [Lipitor] 40 mg PO DAILY #90 tab 03/26/22 Clopidogrel [Plavix] 75 mg PO DAILY #90 tab 03/26/22 Isosorbide Mononitrate ER [Imdur] 30 mg PO DAILY #90 tab 03/26/22 Metoprolol Succinate (ER) [Toprol 25 mg PO DAILY #90 tab 03/26/22 XL] Allergies Allergy/AdvReac Type Severity Reaction Status Date / Time codeine Allergy Unknown Verified 04/19/22 14:54 Sulfa (Sulfonamide Allergy Unknown Verified 04/19/22 14:54 Antibiotics) Review of Systems ROS Statement: Those systems with pertinent positive or pertinent negative responses have been documented in the HPI. ROS Other: All systems not noted in ROS Statement are negative. Past Medical History Past Medical History: Dementia, Hyperlipidemia, Thyroid Disorder Additional Past Medical History / Comment(s): depression and anxiety. weakness as well. Pt is admitted with anxiety, depression, dehydration and weakness. Other HX: hypothyroidism, recent UTI 05/30/15, arthiritis bilateral hands fingers, colonic polyps with removal, diverticular disease, occasional constipation. History of Any Multi-Drug Resistant Organisms: None Reported Past Surgical History: Adenoidectomy, Appendectomy, Hysterectomy, Orthopedic Surgery, Tonsillectomy Additional Past Surgical History / Comment(s): 2015 R heel tendon surgery with bone spur removal, bilateral cataracts, hemorrhoidectomy, R knee arthroscopy, colonoscopies with polypectomies, neuromas removed blateral feet as well as bunionectomy. Past Anesthesia/Blood Transfusion Reactions: Motion Sickness, Postoperative Nausea & Vomiting (PONV) Past Psychological History: Anxiety, Depression Smoking Status: Former smoker Past Alcohol Use History: Occasional Past Drug Use History: None Reported - Past Family History Father Additional Family Medical History / Comment(s): Father during abdominal aortic aneurysm repair at age 76yrs. Mother Family Medical History: Cancer Additional Family Medical History / Comment(s): Mother of breast cancer at age 77 yrs. General Exam Limitations: no limitations Course Vital Signs 04/19/22 04/19/22 04/19/22 11:25 13:26 13:53 Temperature 98.0 F Pulse Rate 56 L 56 L Respiratory 16 18 Rate Blood Pressure 100/64 80/65 104/72 O2 Sat by Pulse 94 L 96 Oximetry 04/19/22 14:48 Temperature Pulse Rate 81 Respiratory 18 Rate Blood Pressure 111/73 O2 Sat by Pulse 96 Oximetry EKG Findings - EKG Comments: EKG Findings:: EKG demonstrates sinus bradycardia with a rate of 58. NE interval 207. QRS 146. QTC of 470. Right bundle branch block. No acute ST segment elevations or depressions. No signs of high degree block Medical Decision Making - Medical Decision Making Upon arrival she was placed in room 19. History and physical exam was performed. IV access was established and laboratory studies were conducted. Urine sample was requested. Vitals obtain. She does have slight hypotension therefore normal saline is ordered. Discuss results with the patient. She will be admitted for blood pressure monitoring and placement. Family was agreeable to this. Patient pending a bed on the floor - Lab Data Result diagrams: 04/19/22 12:30 04/19/22 12:30 Lab Results 04/19/22 04/19/22 04/19/22 Range/Units 12:30 12:30 12:30 WBC 5.4 (3.8-10.6) k/uL RBC 4.48 (3.80-5.40) m/uL Hgb 13.2 (11.4-16.0) gm/dL Hct 40.7 (34.0-46.0) % MCV 90.9 (80.0-100.0) fL MCH 29.4 (25.0-35.0) pg MCHC 32.3 (31.0-37.0) g/dL RDW 13.5 (11.5-15.5) % Plt Count 185 (150-450) k/uL MPV 9.5 Neutrophils % 64 % Lymphocytes % 23 % Monocytes % 7 % Eosinophils % 3 % Basophils % 0 % Neutrophils # 3.5 (1.3-7.7) k/uL Lymphocytes # 1.2 (1.0-4.8) k/uL Monocytes # 0.4 (0-1.0) k/uL Eosinophils # 0.2 (0-0.7) k/uL Basophils # 0.0 (0-0.2) k/uL PT 10.9 (9.0-12.0) sec INR 1.0 (<1.2) APTT 24.1 (22.0-30.0) sec Sodium 136 L (137-145) mmol/L Potassium 4.4 (3.5-5.1) mmol/L Chloride 98 (98-107) mmol/L Carbon Dioxide 31 H (22-30) mmol/L Anion Gap 7 mmol/L BUN 11 (7-17) mg/dL Creatinine 0.66 (0.52-1.04) mg/dL Est GFR (CKD-EPI)AfAm >90 (>60 ml/min/1.73 sqM) Est GFR (CKD-EPI)NonAf 82 (>60 ml/min/1.73 sqM) Glucose 95 (74-99) mg/dL Plasma Lactic Acid Gee (0.7-2.0) mmol/L Calcium 8.8 (8.4-10.2) mg/dL Magnesium 2.0 (1.6-2.3) mg/dL Total Bilirubin 0.7 (0.2-1.3) mg/dL AST 28 (14-36) U/L ALT 28 (4-34) U/L Alkaline Phosphatase 131 H (38-126) U/L Troponin I (0.000-0.034) ng/mL Total Protein 5.9 L (6.3-8.2) g/dL Albumin 3.8 (3.5-5.0) g/dL 04/19/22 04/19/22 Range/Units 12:30 12:30 WBC (3.8-10.6) k/uL RBC (3.80-5.40) m/uL Hgb (11.4-16.0) gm/dL Hct (34.0-46.0) % MCV (80.0-100.0) fL MCH (25.0-35.0) pg MCHC (31.0-37.0) g/dL RDW (11.5-15.5) % Plt Count (150-450) k/uL MPV Neutrophils % % Lymphocytes % % Monocytes % % Eosinophils % % Basophils % % Neutrophils # (1.3-7.7) k/uL Lymphocytes # (1.0-4.8) k/uL Monocytes # (0-1.0) k/uL Eosinophils # (0-0.7) k/uL Basophils # (0-0.2) k/uL PT (9.0-12.0) sec INR (<1.2) APTT (22.0-30.0) sec Sodium (137-145) mmol/L Potassium (3.5-5.1) mmol/L Chloride (98-107) mmol/L Carbon Dioxide (22-30) mmol/L Anion Gap mmol/L BUN (7-17) mg/dL Creatinine (0.52-1.04) mg/dL Est GFR (CKD-EPI)AfAm (>60 ml/min/1.73 sqM) Est GFR (CKD-EPI)NonAf (>60 ml/min/1.73 sqM) Glucose (74-99) mg/dL Plasma Lactic Acid Gee 1.0 (0.7-2.0) mmol/L Calcium (8.4-10.2) mg/dL Magnesium (1.6-2.3) mg/dL Total Bilirubin (0.2-1.3) mg/dL AST (14-36) U/L ALT (4-34) U/L Alkaline Phosphatase (38-126) U/L Troponin I <0.012 (0.000-0.034) ng/mL Total Protein (6.3-8.2) g/dL Albumin (3.5-5.0) g/dL Disposition Clinical Impression: Hypotension, Dehydration Disposition: ADMITTED IP TO THIS [facility] Condition: Stable Is patient prescribed a controlled substance at d/c from ED?: No Time of Disposition: 14:06 Decision to Admit Reason: Admit from EC Decision Date: 04/19/22 Decision Time: 14:06
[2022-04-19] MEDS ORDERED: NALOXONE 0.4 MG/ML 1 ML VIAL IV PRN (14:07)
[2022-04-19] MEDS ORDERED: BISMUTH SUBSALICYLATE 4,192 MG/240 ML BOTTLE PO PRN (16:17)
--- NOTE | 2022-04-19 16:35 | P.HPIM ---
History of Present Illness H&P Date: 04/19/22 Chief Complaint: Weakness This is a pleasant 82-year-old female who presents to [facility]. Patient is alone at time of exam. Patient is alert and oriented to person only. Most of HPI was taken from medical documentation. Patient did not know why she was in the ER why she was in the hospital. Per ER documentation. Was brought to the ER from [facility] due to failure to thrive. Patient has had a decreased appetite and increased confusion. Patient was recently moved into the memory care portion of [facility]. Patient does not have a PCP. Patient's family wants her to be moved to [facility]. In the emergency department there was one blood pressure reading of 80/65. Repeat blood pressure reading was 104/72. Patient denies chest pain shortness of breath nausea vomiting fevers chills. Patient further denies dizziness headache or focal neurological deficits. Patient is able to keep conversation. Patient states that she's bored. Patient is saturating 94% on room air. Patient is mildly bradycardic at 53. Laboratory data taken from the ER was unremarkable. Based on patient's medications, patient has a history of hypotension, hyperlipidemia, hypothyroid, anxiety, vitamin D deficiency, [place], dep ression, and dementia. Review of Systems A 14 point review systems was assessed patient was only positive for those discussed in HPI Past Medical History Past Medical History: Dementia, Hyperlipidemia, Thyroid Disorder Additional Past Medical History / Comment(s): depression and anxiety. weakness as well. Pt is admitted with anxiety, depression, dehydration and weakness. Other HX: hypothyroidism, recent UTI 05/30/15, arthiritis bilateral hands fingers, colonic polyps with removal, diverticular disease, occasional constipation. History of Any Multi-Drug Resistant Organisms: None Reported Past Surgical History: Adenoidectomy, Appendectomy, Hysterectomy, Orthopedic Surgery, Tonsillectomy Additional Past Surgical History / Comment(s): 2015 R heel tendon surgery with bone spur removal, bilateral cataracts, hemorrhoidectomy, R knee arthroscopy, colonoscopies with polypectomies, neuromas removed blateral feet as well as bunionectomy. Past Anesthesia/Blood Transfusion Reactions: Motion Sickness, Postoperative Nausea & Vomiting (PONV) Past Psychological History: Anxiety, Depression Smoking Status: Former smoker Past Alcohol Use History: Occasional Past Drug Use History: None Reported - Past Family History Father Additional Family Medical History / Comment(s): Father during abdominal aortic aneurysm repair at age 76yrs. Mother Family Medical History: Cancer Additional Family Medical History / Comment(s): Mother of breast cancer at age 77 yrs. Medications and Allergies Home Medications Medication Instructions Recorded Confirmed Type ALPRAZolam [Xanax] 0.5 mg PO TID PRN 03/23/22 04/19/22 History Ascorbic Acid [Vitamin C] 500 mg PO BID 03/23/22 04/19/22 History Bacitracin Zinc Oint 1 applic TOPICAL DAILY PRN 03/23/22 04/19/22 History Bismuth Subsalicylate 30 ml PO Q30M PRN MDD 240 ml 03/23/22 04/19/22 History [Pepto-Bismol] Cholecalciferol [Vitamin D3 (125 125 mcg PO DAILY 03/23/22 04/19/22 History Mcg = 5000 Iu)] Cyanocobalamin (Vitamin B-12) 1,000 mcg PO DAILY 03/23/22 04/19/22 History [Vitamin B-12] Donepezil [Aricept] 10 mg PO DAILY 03/23/22 04/19/22 History FLUoxetine HCL [Sarafem] 60 mg PO DAILY 03/23/22 04/19/22 History Levothyroxine Sodium [Synthroid] 112 mcg PO DAILY 03/23/22 04/19/22 History Memantine [Namenda] 10 mg PO BID 03/23/22 04/19/22 History Zinc Gluconate [Zinc] 50 mg PO DAILY 03/23/22 04/19/22 History diazePAM [Valium] 2.5 mg PO BID 03/23/22 04/19/22 History traZODone HCL [Desyrel] 50 mg PO HS 03/23/22 04/19/22 History Isosorbide Mononitrate ER [Imdur] 30 mg PO DAILY #90 tab 03/26/22 04/19/22 Rx Metoprolol Succinate (ER) [Toprol 25 mg PO DAILY #90 tab 03/26/22 04/19/22 Rx XL] Aspirin 81 mg PO HS 04/19/22 04/19/22 History Atorvastatin [Lipitor] 40 mg PO HS 04/19/22 04/19/22 History Clopidogrel [Plavix] 75 mg PO HS 04/19/22 04/19/22 History Folic Acid 0.4 mg PO DAILY 04/19/22 04/19/22 History Midodrine HCl [ProAmantine] 2.5 mg PO TID 04/19/22 04/19/22 History Potassium Chloride [Klor-Con 8] 8 meq PO DAILY 04/19/22 04/19/22 History Allergies Allergy/AdvReac Type Severity Reaction Status Date / Time codeine Allergy Unknown Verified 04/19/22 14:54 Sulfa (Sulfonamide Allergy Unknown Verified 04/19/22 14:54 Antibiotics) Physical Exam Osteopathic Statement: *. No significant issues noted on an osteopathic structural exam other than those noted in the History and Physical/Consult. Vitals: Vital Signs Temp Pulse Resp BP Pulse Ox 04/19/22 15:52 54 L 18 113/67 94 L 04/19/22 14:48 81 18 111/73 96 04/19/22 13:53 104/72 04/19/22 13:26 56 L 18 80/65 96 04/19/22 11:25 98.0 F 56 L 16 100/64 94 L Intake and Output 04/19/22 04/19/22 04/19/22 06:59 14:59 22:59 Other: Weight 53.206 kg General: [non toxic], [no distress], [appears at stated age] Derm: [warm], [dry] Head: [atraumatic], [normocephalic], [symmetric] Eyes: [EOMI], [no lid lag], [anicteric sclera] Mouth: [no lip lesion], [mucus membranes moist] Cardiovascular: [S1S2 reg], [no murmur], [positive posterior tibial pulse bilat eral], Lungs: [CTA bilateral], [no rhonchi, no rales] , [no accessory muscle use] Abdominal: [soft], [ nontender to palpation], [no guarding], [no appreciable organomegaly] Ext: [no gross muscle atrophy], [no edema], [no contractures] Neuro: [ CN II-XI grossly intact], [no focal neuro deficits] Psych: [Alert], [oriented to person only], [appropriate affect] Results CBC & Chem 7: 04/19/22 12:30 04/19/22 12:30 Labs: Abnormal Lab Results - Last 24 Hours (Table) 04/19/22 Range/Units 12:30 Sodium 136 L (137-145) mmol/L Carbon Dioxide 31 H (22-30) mmol/L Alkaline Phosphatase 131 H (38-126) U/L Total Protein 5.9 L (6.3-8.2) g/dL Thrombosis Risk Factor Assmnt - DVT/VTE Prophylaxis DVT/VTE Prophylaxis: Pharmacologic Prophylaxis ordered Assessment and Plan Assessment: 1. Generalized weakness Await urinalysis Check TSH PT OT Case management Fall precautions Consult case management 2. Episode of hypotension Patient is on metoprolol and midodrine Discontinue metoprolol Monitor telemetry There is no history of an arrhythmia in the charting Vitals every 4 hours 3. Chronic conditions Hypertension, hyperlipidemia, anxiety, depression, dementia, hypothyroid, hypotension Resume home medications 4. I spoke with the patient's daughter Bebe Chaparro who is also her power of collections attorney. Bebe confirmed the patient is a DO NOT RESUSCITATE. Greater than 45 minutes spent coordinating care, talking to family, documenting, and counseling. Disposition: Plan is for patient to go SNF Anticipated length of stay is greater than 2 midnight Patient has no PCP Patient is a DO NOT RESUSCITATE Time with Patient: Greater than 30
[2022-04-19] MEDS: MIDODRINE 5 MG TAB PO SCH (17:02)
[2022-04-19 18:13] LABS: T4, Free (Free Thyroxine) 1.28 ng/dL (0.78-2.19)
[2022-04-19] MEDS: traZODone HCL 50 MG TAB PO SCH (20:38)
[2022-04-19] MEDS: ASCORBIC ACID 500 MG TAB PO SCH (20:38)
[2022-04-19] MEDS: FAMOTIDINE 20 MG TAB PO SCH (20:38)
[2022-04-19] MEDS: ATORVASTATIN 40 MG TAB PO SCH (20:38)
[2022-04-19] MEDS: CLOPIDOGREL 75 MG TAB PO SCH (20:39)
[2022-04-19] MEDS: HEPARIN SODIUM,PORCINE/PF 5,000 UNIT/0.5 ML SYRINGE SQ SCH ×2 (20:39→23:44)
[2022-04-19] MEDS: ASPIRIN 81 MG PO SCH (20:39)
[2022-04-19 21:55] LABS: Appearance,Urine Cloudy (Clear); Bilirubin,Urine Negative (Negative); Blood,Urine Negative (Negative); Color,Urine Yellow; Glucose,Urine (UA) Negative (Negative); Ketones,Urine Negative (Negative); Leukocyte Esterase,Urine Moderate (Negative); Mucus,Urine Many /hpf; Nitrite,Urine Negative (Negative); PH, Urine 5.5 (5.0-8.0); Protein,Urine Trace (Negative); RBC,Urine 1 /hpf (0-5); Specific Gravity,Urine 1.021 (1.001-1.035); Squamous Epithelial Cell,Urine 5 /hpf (0-4); Urobilinogen,Urine <2.0 mg/dL (<2.0); WBC,Urine 25 /hpf (0-5)
[2022-04-20] MEDS: MEMANTINE 10 MG TAB PO SCH ×3 (04:00→20:30)
[2022-04-20] MEDS: LEVOTHYROXINE 125 MCG TAB PO SCH (05:04)
[2022-04-20] MEDS ORDERED: LEVOTHYROXINE 112 MCG TAB PO SCH (06:30)
[2022-04-20] MEDS: SODIUM CHLORIDE 0.9% 1,000 ML IV SCH (08:08)
[2022-04-20 08:54] LABS: Basophils # (A) 0.03 X 10*3/uL (0.00-0.10); Basophils % (A) 0.7 %; Eosinophils % (A) 4.5 %; HCT 38.7 % (37.2-46.3); HGB 12.3 g/dL (12.0-15.0); Immature Grans, Automated 0.4 %; Lymphocytes # (A) 1.46 X 10*3/uL (0.90-5.00); Lymphocytes % (A) 32.7 %; MCH 29.4 pg (27.0-32.0); MCHC 31.8 g/dL (32.0-37.0); MCV 92.4 fL (80.0-97.0); Mean Platelet Volume 12.2 fL (9.5-12.2); Monocytes # (A) 0.44 X 10*3/uL (0.20-1.00); Monocytes % (A) 9.9 %; NRBC Per 100 WBC 0 /100 WBCS (0.0-0.0); Neutrophils # (A) 2.31 X 10*3/uL (1.80-7.70); Neutrophils % (A) 51.8 %; Platelet Count 191 X 10*3/uL (140-440); RBC 4.19 X 10*6/uL (4.10-5.20); RDW 14.1 % (11.5-14.5); WBC 4.46 X 10*3/uL (4.50-10.00)
[2022-04-20] MEDS: ZINC SULFATE 220 MG CAP PO SCH (09:06)
[2022-04-20] MEDS: CHOLECALCIFEROL 125 MCG (5000 IU) TABLET PO SCH (09:06)
[2022-04-20] MEDS: CYANOCOBALAMIN 500 MCG TAB PO SCH (09:06)
[2022-04-20] MEDS: ASCORBIC ACID 500 MG TAB PO SCH ×2 (09:06→20:30)
[2022-04-20] MEDS: FAMOTIDINE 20 MG TAB PO SCH (09:06)
[2022-04-20] MEDS: FOLIC ACID 1 MG TAB PO SCH (09:06)
[2022-04-20] MEDS: DONEPEZIL 10 MG TAB PO SCH (09:06)
[2022-04-20] MEDS: HEPARIN SODIUM,PORCINE/PF 5,000 UNIT/0.5 ML SYRINGE SQ SCH ×2 (09:06→16:58)
[2022-04-20] MEDS: ISOSORBIDE MONONITRATE ER 30 MG TAB.ER.24H PO SCH (09:07)
[2022-04-20] MEDS: MIDODRINE 5 MG TAB PO SCH ×3 (09:10→17:07)
[2022-04-20 09:48] LABS: ALT 26 U/L (8-44); AST 27 U/L (13-35); African American GFR (CKD) 94.3 (60.0-200.0); Albumin 3.5 g/dL (3.8-4.9); Albumin/Globulin Ratio 1.98 (1.60-3.17); Alkaline Phosphatase 127 U/L (41-126); BUN/Creat Ratio 11.06 Ratio (12.00-20.00); Blood Urea Nitrogen 7.4 mg/dL (9.0-27.0); Calcium 8.6 mg/dL (8.7-10.3); Carbon Dioxide 25.4 mmol/L (20.0-27.5); Chloride 102 mmol/L (96-109); Globulin 1.8 g/dL (1.6-3.3); Glucose 87 mg/dL (70-110); Non-African American GFR(CKD) 81.4 (60.0-200.0); Sodium 137 mmol/L (135-145); Total Protein 5.3 g/dL (6.2-8.2); Vitamin B12 >2000.0 pg/mL (200.0-944.0)
[2022-04-20 10:13] VITALS: BMI 17.7
[2022-04-20] MEDS: NON FORMULARY DRUG (Fluoxetine Hcl [Sarafem] 60 MG Tablet) PO SCH (10:53)
[2022-04-20] MEDS: diazePAM 2 MG TAB PO PRN ×2 (13:12→20:30)
--- NOTE | 2022-04-20 16:03 | P.PN ---
Subjective Progress Note Date: 04/27/22 Principal diagnosis: Patient seen and examined at bedside. Patient denies chest pain shortness of breath nausea vomiting fevers or chills. Patient walked throughout the hallway today no problem. Objective - Vital Signs Vital signs: Vital Signs Temp 97.7 F 04/20/22 03:51 Pulse 50 L 04/20/22 11:27 Resp 14 04/20/22 11:27 BP 107/60 04/20/22 11:27 Pulse Ox 98 04/20/22 11:27 FiO2 Intake & Output 04/19/22 04/20/22 04/20/22 18:59 06:59 18:59 Intake Total 5 150 Balance 5 150 Weight 53.206 kg 51.5 kg 51.5 kg Intake: IV 5 150 Sodium Chloride 0.9% 1, 5 150 000 ml @ 50 mls/hr IV . Q20H [facility] Rx#:[id number] Other: # Voids 1 - Exam General: [non toxic], [no distress], [appears at stated age] Derm: [warm], [dry] Head: [atraumatic], [normocephalic], [symmetric] Eyes: [EOMI], [no lid lag], [anicteric sclera] Mouth: [no lip lesion], [mucus membranes moist] Cardiovascular: [S1S2 reg], [no murmur], [positive posterior tibial pulse bilateral], Lungs: [CTA bilateral], [no rhonchi, no rales] , [no accessory muscle use] Abdominal: [soft], [ nontender to palpation], [no guarding], [no appreciable organomegaly] Ext: [no gross muscle atrophy], [no edema], [no contractures] Neuro: [ CN II-XI grossly intact], [no focal neuro deficits] Psych: [Alert], [oriented to person], [appropriate affect] - Labs CBC & Chem 7: 04/20/22 05:55 04/20/22 05:55 Labs: Abnormal Lab Results - Last 24 Hours (Table) 04/19/22 04/19/22 04/20/22 Range/Units 12:01 12:30 05:55 WBC 4.46 L (4.50-10.00) X 10*3/uL MCHC 31.8 L (32.0-37.0) g/dL Anion Gap (10.00-18.00) mmol/L BUN (9.0-27.0) mg/dL BUN/Creatinine Ratio (12.00-20.00) Ratio Calcium (8.7-10.3) mg/dL Alkaline Phosphatase (41-126) U/L Total Protein (6.2-8.2) g/dL Albumin (3.8-4.9) g/dL Vitamin B12 (200.0-944.0) pg/mL TSH 5.240 H (0.465-4.680) mIU/L Urine Appearance Cloudy H (Clear) Urine Protein Trace H (Negative) Ur Leukocyte Esterase Moderate H (Negative) Urine WBC 25 H (0-5) /hpf Ur Squamous Epith Cells 5 H (0-4) /hpf Urine Mucus Many H (None) /hpf 04/20/22 Range/Units 05:55 WBC (4.50-10.00) X 10*3/uL MCHC (32.0-37.0) g/dL Anion Gap 9.80 L (10.00-18.00) mmol/L BUN 7.4 L (9.0-27.0) mg/dL BUN/Creatinine Ratio 11.06 L (12.00-20.00) Ratio Calcium 8.6 L (8.7-10.3) mg/dL Alkaline Phosphatase 127 H (41-126) U/L Total Protein 5.3 L (6.2-8.2) g/dL Albumin 3.5 L (3.8-4.9) g/dL Vitamin B12 >2000.0 H (200.0-944.0) pg/mL TSH (0.465-4.680) mIU/L Urine Appearance (Clear) Urine Protein (Negative) Ur Leukocyte Esterase (Negative) Urine WBC (0-5) /hpf Ur Squamous Epith Cells (0-4) /hpf Urine Mucus (None) /hpf Assessment and Plan Assessment: 1. Generalized weakness all side effect Toradol Urinalysis was positive for UTI however culture was not obtained Patient is currently on IV Rocephin TSH was elevated as a result levothyroxine was increased to 125 mcg per day PT OT Case management Fall precautions Consult case management 2. UTI IV Rocephin Cultures were not obtained before initiating antibiotics 3. Hypothyroidism controlled Is a direct seen increased to 125 mcg per day Episode of hypotension Patient is on metoprolol and midodrine Discontinue metoprolol continue Mediterranean Monitor telemetry There is no history of an arrhythmia in the charting Vitals every 4 hours 4. Chronic conditions Hypertension, hyperlipidemia, anxiety, depression, dementia, hypothyroid, hypotension Resume home medications 5. I spoke with the patient's daughter Bebe Chaparro who is also her power of a ttorney. Bebe confirmed the patient is a DO NOT RESUSCITATE. Greater than 45 minutes spent coordinating care, talking to family, documenting, and counseling. Disposition: Plan is for patient to go SNF Anticipated length of stay is greater than 2 midnight Patient has no PCP Patient is a DO NOT RESUSCITATE
[2022-04-20] MEDS: traZODone HCL 50 MG TAB PO SCH (20:30)
[2022-04-20] MEDS: ASPIRIN 81 MG PO SCH (20:30)
[2022-04-20] MEDS: ATORVASTATIN 40 MG TAB PO SCH (20:30)
[2022-04-20] MEDS: CLOPIDOGREL 75 MG TAB PO SCH (20:30)
[2022-04-21] MEDS: HEPARIN SODIUM,PORCINE/PF 5,000 UNIT/0.5 ML SYRINGE SQ SCH ×3 (00:24→16:50)
[2022-04-21] MEDS: SODIUM CHLORIDE 0.9% 1,000 ML IV SCH (00:25)
[2022-04-21] MEDS: LEVOTHYROXINE 125 MCG TAB PO SCH (04:29)
[2022-04-21] MEDS: ASCORBIC ACID 500 MG TAB PO SCH ×2 (09:20→20:54)
[2022-04-21] MEDS: CYANOCOBALAMIN 500 MCG TAB PO SCH (09:20)
[2022-04-21] MEDS: MIDODRINE 5 MG TAB PO SCH ×3 (09:20→16:52)
[2022-04-21] MEDS: FOLIC ACID 1 MG TAB PO SCH (09:21)
[2022-04-21] MEDS: ISOSORBIDE MONONITRATE ER 30 MG TAB.ER.24H PO SCH (09:21)
[2022-04-21] MEDS: DONEPEZIL 10 MG TAB PO SCH (09:21)
[2022-04-21] MEDS: MEMANTINE 10 MG TAB PO SCH ×2 (09:21→20:54)
[2022-04-21] MEDS: FAMOTIDINE 20 MG TAB PO SCH (09:21)
[2022-04-21] MEDS: ZINC SULFATE 220 MG CAP PO SCH (09:21)
[2022-04-21] MEDS: NON FORMULARY DRUG (Fluoxetine Hcl [Sarafem] 60 MG Tablet) PO SCH (09:21)
[2022-04-21] MEDS: CHOLECALCIFEROL 125 MCG (5000 IU) TABLET PO SCH (09:29)
--- NOTE | 2022-04-21 12:49 | P.PN ---
Subjective Progress Note Date: 04/21/22 The patient was seen at bedside, no acute events overnight. She reported having some abdominal cramps this morning. Objective - Vital Signs Vital signs: Vital Signs Temp 97.6 F 04/21/22 04:12 Pulse 58 L 04/21/22 08:40 Resp 14 04/21/22 08:40 BP 123/61 04/21/22 04:12 Pulse Ox 92 L 04/21/22 04:12 FiO2 Intake & Output 04/20/22 04/21/22 04/21/22 18:59 06:59 18:59 Intake Total 650 120 Balance 650 120 Weight 51.5 kg Intake: Intake, IV Titration 650 Amount Sodium Chloride 0.9% 1, 600 000 ml @ 50 mls/hr IV . Q20H [facility] Rx#:[id number] cefTRIAXone 2 gm In 50 Sodium Chloride 0.9% 50 ml @ 100 mls/hr IVPB Q24HR [facility] Rx#:[id number] Oral 120 Other: Voiding Method Toilet Toilet Diaper Diaper Incontinent Incontinent # Voids 5 1 2 - Exam General: [non toxic], [no distress], [appears at stated age] Derm: [warm], [dry] Head: [atraumatic], [normocephalic], [symmetric] Eyes: [EOMI], [no lid lag], [anicteric sclera] Mouth: [no lip lesion], [mucus membranes moist] Cardiovascular: [S1S2 reg], [no murmur], [positive posterior tibial pulse bilateral], Lungs: [CTA bilateral], [no rhonchi, no rales] , [no accessory muscle use] Abdominal: [soft], [ nontender to palpation], [no guarding], [no appreciable organomegaly] Ext: [no gross muscle atrophy], [no edema], [no contractures] Neuro: [ CN II-XI grossly intact], [no focal neuro deficits] Psych: [Alert], [oriented to person], [appropriate affect] - Labs CBC & Chem 7: 04/20/22 05:55 04/20/22 05:55 Assessment and Plan Assessment: 1. Generalized weakness PT OT Fall precautions Consult case management for placement 2. UTI IV Rocephin Cultures were not obtained before initiating antibiotics 3. Hypothyroidism controlled Levothyroxine increased to 125 mcg per day 4. Episode of hypotension Patient is on metoprolol and midodrine Discontinue metoprolol continue Midodrine Monitor telemetry There is no history of an arrhythmia in the charting Vitals every 4 hours 5. Chronic conditions Hypertension, hyperlipidemia, anxiety, depression, dementia, hypothyroid, hypotension Resume home medications 6. Spoke with the patient's daughter Bebe Chaparro who is also her power of erisa attorney. Bebe confirmed the patient is a DO NOT RESUSCITATE. Greater than 45 minutes spent coordinating care, talking to family, documenting, and counseling. Disposition: Plan is for patient to go SNF Anticipated length of stay is greater than 2 midnight Patient has no PCP Patient is a DO NOT RESUSCITATE
[2022-04-21] MEDS: ASPIRIN 81 MG PO SCH (20:54)
[2022-04-21] MEDS: traZODone HCL 50 MG TAB PO SCH (20:54)
[2022-04-21] MEDS: CLOPIDOGREL 75 MG TAB PO SCH (20:54)
[2022-04-21] MEDS: diazePAM 2 MG TAB PO PRN (20:54)
[2022-04-21] MEDS: ATORVASTATIN 40 MG TAB PO SCH (20:54)
[2022-04-22] MEDS: HEPARIN SODIUM,PORCINE/PF 5,000 UNIT/0.5 ML SYRINGE SQ SCH ×3 (00:05→16:56)
[2022-04-22] MEDS: LEVOTHYROXINE 125 MCG TAB PO SCH (04:35)
[2022-04-22] MEDS: SODIUM CHLORIDE 0.9% 1,000 ML IV SCH ×2 (08:38→20:09)
[2022-04-22] MEDS: MIDODRINE 5 MG TAB PO SCH ×3 (08:41→16:57)
[2022-04-22] MEDS: CYANOCOBALAMIN 500 MCG TAB PO SCH (08:42)
[2022-04-22] MEDS: ASCORBIC ACID 500 MG TAB PO SCH ×2 (08:42→20:04)
[2022-04-22] MEDS: CHOLECALCIFEROL 125 MCG (5000 IU) TABLET PO SCH (08:42)
[2022-04-22] MEDS: FAMOTIDINE 20 MG TAB PO SCH (08:43)
[2022-04-22] MEDS: NON FORMULARY DRUG (Fluoxetine Hcl [Sarafem] 60 MG Tablet) PO SCH (08:43)
[2022-04-22] MEDS: DONEPEZIL 10 MG TAB PO SCH (08:43)
[2022-04-22] MEDS: FOLIC ACID 1 MG TAB PO SCH (08:43)
[2022-04-22] MEDS: ZINC SULFATE 220 MG CAP PO SCH (08:44)
[2022-04-22] MEDS: MEMANTINE 10 MG TAB PO SCH ×2 (08:44→20:08)
[2022-04-22] MEDS: ISOSORBIDE MONONITRATE ER 30 MG TAB.ER.24H PO SCH (08:44)
[2022-04-22 10:34] LABS: Basophils # (A) 0.02 X 10*3/uL (0.00-0.10); Basophils % (A) 0.4 %; Eosinophils % (A) 3.8 %; HCT 36.1 % (37.2-46.3); HGB 11.6 g/dL (12.0-15.0); Immature Grans, Automated 0.2 %; Lymphocytes # (A) 1.55 X 10*3/uL (0.90-5.00); Lymphocytes % (A) 29.3 %; MCHC 32.1 g/dL (32.0-37.0); MCV 93.3 fL (80.0-97.0); Mean Platelet Volume 11.8 fL (9.5-12.2); Monocytes # (A) 0.51 X 10*3/uL (0.20-1.00); Monocytes % (A) 9.6 %; NRBC Per 100 WBC 0 /100 WBCS (0.0-0.0); Neutrophils % (A) 56.7 %; Platelet Count 174 X 10*3/uL (140-440); RBC 3.87 X 10*6/uL (4.10-5.20); RDW 14.3 % (11.5-14.5); WBC 5.29 X 10*3/uL (4.50-10.00)
[2022-04-22 10:39] LABS: African American GFR (CKD) 97.7 (60.0-200.0); Anion Gap 8.6 mmol/L (10.00-18.00); BUN/Creat Ratio 9.83 Ratio (12.00-20.00); Blood Urea Nitrogen 5.9 mg/dL (9.0-27.0); Calcium 8.7 mg/dL (8.7-10.3); Carbon Dioxide 26.4 mmol/L (20.0-27.5); Magnesium 1.9 mg/dL (1.5-2.4); Non-African American GFR(CKD) 84.3 (60.0-200.0); Phosphorus 3.9 mg/dL (2.4-5.1); Potassium 4.1 mmol/L (3.5-5.5)
--- NOTE | 2022-04-22 13:53 | P.PN ---
Subjective Progress Note Date: 04/22/22 The patient was seen at bedside, no acute events overnight. Objective - Vital Signs Vital signs: Vital Signs Temp 98.2 F 04/22/22 12:02 Pulse 69 04/22/22 12:02 Resp 16 04/22/22 12:02 BP 124/72 04/22/22 12:02 Pulse Ox 92 L 04/22/22 12:02 FiO2 Intake & Output 04/21/22 04/22/22 04/22/22 18:59 06:59 18:59 Intake Total 240 580 Balance 240 580 Intake: IV 400 Sodium Chloride 0.9% 1, 400 000 ml @ 50 mls/hr IV . Q20H [facility] Rx#:[id number] Oral 240 180 Other: Voiding Method Toilet Toilet Toilet Diaper Diaper Diaper Incontinent Incontinent Incontinent # Voids 3 2 3 # Bowel Movements 1 1 - Exam General: [non toxic], [no distress], [appears at stated age] Derm: [warm], [dry] Head: [atraumatic], [normocephalic], [symmetric] Eyes: [EOMI], [no lid lag], [anicteric sclera] Mouth: [no lip lesion], [mucus membranes moist] Cardiovascular: [S1S2 reg], [no murmur], [positive posterior tibial pulse bilateral], Lungs: [CTA bilateral], [no rhonchi, no rales] , [no accessory muscle use] Abdominal: [soft], [ nontender to palpation], [no guarding], [no appreciable organomegaly] Ext: [no gross muscle atrophy], [no edema], [no contractures] Neuro: [ CN II-XI grossly intact], [no focal neuro deficits] Psych: [Alert], [oriented to person], [appropriate affect] - Labs CBC & Chem 7: 04/22/22 05:15 04/22/22 05:15 Labs: Abnormal Lab Results - Last 24 Hours (Table) 04/22/22 04/22/22 Range/Units 05:15 05:15 RBC 3.87 L (4.10-5.20) X 10*6/uL Hgb 11.6 L (12.0-15.0) g/dL Hct 36.1 L (37.2-46.3) % Anion Gap 8.60 L (10.00-18.00) mmol/L BUN 5.9 L (9.0-27.0) mg/dL BUN/Creatinine Ratio 9.83 L (12.00-20.00) Ratio Assessment and Plan Assessment: 1. Generalized weakness PT OT Fall precautions Consult case management for placement 2. UTI IV Rocephin Cultures were not obtained before initiating antibiotics 3. Hypothyroidism controlled Levothyroxine increased to 125 mcg per day 4. Episode of hypotension Patient is on metoprolol and midodrine Discontinue metoprolol continue Midodrine Monitor telemetry There is no history of an arrhythmia in the charting Vitals every 4 hours 5. Chronic conditions Hypertension, hyperlipidemia, anxiety, depression, dementia, hypothyroid, hypotension Resume home medications 6. Spoke with the patient's daughter Bebe Chaparro who is also her power of duty officer. Bebe confirmed the patient is a DO NOT RESUSCITATE. Greater than 45 minutes spent coordinating care, talking to family, documenting, and counseling. Disposition: Plan is for patient to go SNF Anticipated length of stay is greater than 2 midnight Patient has no PCP Patient is a DO NOT RESUSCITATE
[2022-04-22] MEDS: ASPIRIN 81 MG PO SCH (20:04)
[2022-04-22] MEDS: ATORVASTATIN 40 MG TAB PO SCH (20:04)
[2022-04-22] MEDS: traZODone HCL 50 MG TAB PO SCH (20:04)
[2022-04-22] MEDS: CLOPIDOGREL 75 MG TAB PO SCH (20:04)
[2022-04-23] MEDS: HEPARIN SODIUM,PORCINE/PF 5,000 UNIT/0.5 ML SYRINGE SQ SCH ×4 (00:26→23:39)
[2022-04-23] MEDS: LEVOTHYROXINE 125 MCG TAB PO SCH (05:59)
[2022-04-23] MEDS: MIDODRINE 5 MG TAB PO SCH ×3 (08:11→16:49)
[2022-04-23] MEDS: DONEPEZIL 10 MG TAB PO SCH (08:12)
[2022-04-23] MEDS: CYANOCOBALAMIN 500 MCG TAB PO SCH (08:12)
[2022-04-23] MEDS: CHOLECALCIFEROL 125 MCG (5000 IU) TABLET PO SCH (08:12)
[2022-04-23] MEDS: FAMOTIDINE 20 MG TAB PO SCH (08:12)
[2022-04-23] MEDS: MEMANTINE 10 MG TAB PO SCH ×2 (08:12→20:50)
[2022-04-23] MEDS: ZINC SULFATE 220 MG CAP PO SCH (08:12)
[2022-04-23] MEDS: FOLIC ACID 1 MG TAB PO SCH (08:12)
[2022-04-23] MEDS: ASCORBIC ACID 500 MG TAB PO SCH ×2 (08:12→20:50)
[2022-04-23] MEDS: ISOSORBIDE MONONITRATE ER 30 MG TAB.ER.24H PO SCH (08:12)
[2022-04-23] MEDS: NON FORMULARY DRUG (Fluoxetine Hcl [Sarafem] 60 MG Tablet) PO SCH (08:43)
[2022-04-23 10:53] LABS: African American GFR (CKD) 95.8 (60.0-200.0); Anion Gap 10.8 mmol/L (10.00-18.00); BUN/Creat Ratio 10.66 Ratio (12.00-20.00); Blood Urea Nitrogen 6.8 mg/dL (9.0-27.0); Calcium 8.9 mg/dL (8.7-10.3); Carbon Dioxide 26.8 mmol/L (20.0-27.5); Non-African American GFR(CKD) 82.7 (60.0-200.0); Phosphorus 4.2 mg/dL (2.4-5.1); Potassium 3.9 mmol/L (3.5-5.5)
[2022-04-23 11:05] LABS: Basophils # (A) 0.02 X 10*3/uL (0.00-0.10); Basophils % (A) 0.3 %; Eosinophils # (A) 0.19 X 10*3/uL (0.04-0.35); Eosinophils % (A) 2.7 %; HCT 37.6 % (37.2-46.3); HGB 12.8 g/dL (12.0-15.0); Immature Grans, Automated 0.4 %; Lymphocytes # (A) 1.34 X 10*3/uL (0.90-5.00); Lymphocytes % (A) 18.8 %; MCH 30.6 pg (27.0-32.0); Mean Platelet Volume 11.7 fL (9.5-12.2); Monocytes # (A) 0.65 X 10*3/uL (0.20-1.00); Monocytes % (A) 9.1 %; NRBC Per 100 WBC 0 /100 WBCS (0.0-0.0); Neutrophils % (A) 68.7 %; Platelet Count 197 X 10*3/uL (140-440); RBC 4.18 X 10*6/uL (4.10-5.20); RDW 14.4 % (11.5-14.5); WBC 7.13 X 10*3/uL (4.50-10.00)
--- NOTE | 2022-04-23 16:05 | P.PN ---
Subjective Progress Note Date: 04/23/22 Patient is [id number] female with dementia, HLD< and hypothyroidism who presented with weakness. In the emergency department there was one blood pressure reading of 80/65. Repeat blood pressure reading was 104/72. Laboratory analysis in the ER was unremarkable. She was admitted for generalized weakness and possible urinary tract infection. Urinary tract infection was ruled out as patient has weight loss 25 but had 5 squamous epithelial cells. It does appear that she has slightly under treatment of her hypothyroidism since her TSH was 5.24. Her levothyroxine was increased. Patient seen and examined at bedside. She denies any chest pain, shortness breath, nausea, vomiting. General: nontoxic, no distress, appears at stated age Derm: warm, dry Head: atraumatic, normocephalic, symmetric Eyes: EOMI, no lid lag, anicteric sclera Mouth: no lip lesion, mucus membranes moist Cardiovascular: S1S2 reg, no murmur, positive posterior tibial pulse bilateral, Lungs: Decreased bs bilateral, no rhonchi, no rales , no accessory muscle use Abdominal: soft, nontender to palpation, no guarding, no appreciable organomegaly Ext: no gross muscle atrophy, no edema, no contractures Neuro: CN II-XI grossly intact, no focal neuro deficits Psych: Alert, oriented to self, appropriate affect Assessment/plan: Generalized weakness -PT/OT -Fall precautions UTI, ruled out - disconitnue IV Rocephin - Cultures were not obtained before initiating antibiotics Hypothyroidism controlled - Levothyroxine was increased to 125 mcg per day Episode of hypotension - Patient is on metoprolol and midodrine - Discontinue metoprolol continue Midodrine - Monitor telemetry Chronic conditions: Hypertension, hyperlipidemia, anxiety, depression, dementia, hypothyroid, hypotension currently awaiting auth for [facility], no safe discharge plan in place. Objective - Vital Signs Vital signs: Vital Signs Temp 97.5 F L 04/23/22 11:29 Pulse 78 04/23/22 11:29 Resp 16 04/23/22 11:29 BP 107/56 04/23/22 11:29 Pulse Ox 94 L 04/23/22 11:29 FiO2 Intake & Output 04/22/22 04/23/22 04/23/22 18:59 06:59 18:59 Intake Total 240 Balance 240 Intake: Oral 240 Other: Voiding Method Toilet Toilet Toilet Diaper Diaper Incontinent Incontinent Incontinent # Voids 3 1 1 # Bowel Movements 1 - Labs CBC & Chem 7: 04/23/22 06:25 04/23/22 06:25 Labs: Abnormal Lab Results - Last 24 Hours (Table) 04/23/22 Range/Units 06:25 BUN 6.8 L (9.0-27.0) mg/dL BUN/Creatinine Ratio 10.66 L (12.00-20.00) Ratio
[2022-04-23] MEDS: diazePAM 2 MG TAB PO PRN (16:53)
--- NOTE | 2022-04-23 18:42 | CDI ---
Documentation Clarification Form Date: 04/23/2022 06:19:01 PM From: Alise Hatfield RN CCDS Admit Date: 04/19/2022 02:07:00 PM Patient Name: Manju Guardado Visit Number: [id number] Discharge Date: ATTENTION: The Clinical Documentation Specialists (CDI) and [facility] Coding Staff appreciate your assistance in clarifying documentation. Please respond to the clarification below the line at the bottom and electronically sign. The CDI & [facility] Coding staff will review the response and follow-up if needed. Please note: Queries are made part of the Legal Health Record. If you have any questions, please contact the author of this message via ITS. Dr. Dinora Love The Registered Dietitian assessment on 04/20 indicates this patient is underweight. Based on this information and the findings below, is there an additional diagnosis that is clinically appropriate for this patient? History/Risk Factors: 82-year-old female [facility] for failure to thrive, dehydration and hypotension. Medical History: Dementia A&O x 1, Vit D deficiency, Hypotension, Hypothyroidism, and decreased appetite. 04/19, H&P. Clinical Indicators: RD Consult Assessment: Current BMI: 17.7 Weight 51.5kg (built in bed scale ) Height 5ft 7in. [place] bodyweight 61.4kg Physical findings: Underweight, Phong: 15; no wounds identified. Estimated Nutritional needs [place] body weight used to estimate. Energy formula for estimated nutritional needs 25-30Kcals/Kg. Energy needs 1157-6878 Kcal. Estimated Protein needs [place] body weight used to estimate. Estimated protein range 1.0-1.2g/kg. Estimated protein Needs 61-74 g/d. Estimated fluid needs 1ml/Kcal Estimated fluid 8177-8948 ml/d. Inadequate oral intake; Underweight Nutritional Goals: Weight gain Increased PO intake from 50% - 75%. Meeting 75% of estimated nutritional needs. Tolerating PO diet by discharge. Treatment: Monitor PO intake and supplement acceptance Dietary Consult: See above Supplements: Ensure Enlive TID Diet: Regular diet + oral supplement 3x daily for weight gain. Lab monitoring: Chem panel. Is there an additional diagnosis that is clinically appropriate for this patient? [ x ] Mild Protein-Calorie Malnutrition [ ] Moderate Protein-Calorie Malnutrition [ ] Severe Protein-Calorie Malnutrition [ ] Other condition, please specify [ ] Unable to Determine (Template Last Revised: September 2020) MIRELAD
[2022-04-23] MEDS: SODIUM CHLORIDE 0.9% 1,000 ML IV SCH (20:49)
[2022-04-23] MEDS: CLOPIDOGREL 75 MG TAB PO SCH (20:50)
[2022-04-23] MEDS: ATORVASTATIN 40 MG TAB PO SCH (20:50)
[2022-04-23] MEDS: traZODone HCL 50 MG TAB PO SCH (20:50)
[2022-04-23] MEDS: ASPIRIN 81 MG PO SCH (20:50)
[2022-04-24] MEDS: LEVOTHYROXINE 125 MCG TAB PO SCH (05:44)
[2022-04-24] MEDS: HEPARIN SODIUM,PORCINE/PF 5,000 UNIT/0.5 ML SYRINGE SQ SCH ×2 (08:30→17:17)
[2022-04-24] MEDS: ASCORBIC ACID 500 MG TAB PO SCH ×2 (08:30→20:06)
[2022-04-24] MEDS: CHOLECALCIFEROL 125 MCG (5000 IU) TABLET PO SCH (08:30)
[2022-04-24] MEDS: CYANOCOBALAMIN 500 MCG TAB PO SCH (08:31)
[2022-04-24] MEDS: DONEPEZIL 10 MG TAB PO SCH (08:32)
[2022-04-24] MEDS: FAMOTIDINE 20 MG TAB PO SCH (08:32)
[2022-04-24] MEDS: MEMANTINE 10 MG TAB PO SCH ×2 (08:32→20:41)
[2022-04-24] MEDS: ISOSORBIDE MONONITRATE ER 30 MG TAB.ER.24H PO SCH (08:32)
[2022-04-24] MEDS: ZINC SULFATE 220 MG CAP PO SCH (08:32)
[2022-04-24] MEDS: MIDODRINE 5 MG TAB PO SCH ×3 (08:33→17:17)
[2022-04-24] MEDS: NON FORMULARY DRUG (Fluoxetine Hcl [Sarafem] 60 MG Tablet) PO SCH (08:33)
[2022-04-24] MEDS: FOLIC ACID 1 MG TAB PO SCH (08:33)
[2022-04-24] MEDS: SODIUM CHLORIDE 0.9% 1,000 ML IV SCH (17:19)
--- NOTE | 2022-04-24 18:37 | P.PN ---
Subjective Progress Note Date: 04/24/22 (delayed charting seen at 0845 ) Patient is [id number] female with dementia, HLD< and hypothyroidism who presented with weakness. In the emergency department there was one blood pressure reading of 80/65. Repeat blood pressure reading was 104/72. Laboratory analysis in the ER was unremarkable. She was admitted for generalized weakness and possible urinary tract infection. Urinary tract infection was ruled out as patient has weight loss 25 but had 5 squamous epithelial cells. It does appear that she has slightly under treatment of her hypothyroidism since her TSH was 5.24. Her levothyroxine was increased. Patient seen and examined at bedside. Supplement chemotherapy. I think Amaya shortness breath, nausea, vomiting. General: nontoxic, no distress, appears at stated age Derm: warm, dry Head: atraumatic, normocephalic, symmetric Eyes: EOMI, no lid lag, anicteric sclera Mouth: no lip lesion, mucus membranes moist Cardiovascular: S1S2 reg, no murmur, positive posterior tibial pulse bilateral, Lungs: Decreased bs bilateral, no rhonchi, no rales , no accessory muscle use Abdominal: soft, nontender to palpation, no guarding, no appreciable organomegaly Ext: no gross muscle atrophy, no edema, no contractures Neuro: CN II-XI grossly intact, no focal neuro deficits Psych: Alert, oriented to self, appropriate affect Assessment/plan: Generalized weakness -PT/OT -Fall precautions UTI, ruled out - off IV Rocephin - Cultures were not obtained before initiating antibiotics Hypothyroidism controlled - Levothyroxine was increased to 125 mcg per day Episode of hypotension, resolved - now off metoprolol - continued on home midodrine Chronic conditions: Hypertension, hyperlipidemia, anxiety, depression, dementia, hypothyroid, hypotension Unfortunately. Insurance requested appear to appear for her subacute rehab. I did perform this however they continued to hold the denial. Case management is aware and is working with family. Plan will be for long-term placement. Active Medications Generic Name Dose Route Start Last Admin Trade Name Freq PRN Reason Stop Dose Admin Ascorbic Acid 500 mg 04/19/22 21:00 04/24/22 08:30 Ascorbic Acid 500 Mg Tab PO 500 mg BID ATUL Administration Aspirin 81 mg 04/19/22 21:00 04/23/22 20:50 Aspirin 81 Mg PO 81 mg HS ATUL Administration Atorvastatin Calcium 40 mg 04/19/22 21:00 04/23/22 20:50 Atorvastatin 40 Mg Tab PO 40 mg HS ATUL Administration Bismuth Subsalicylate 524 mg 04/19/22 16:17 Bismuth Subsalicylate 4,192 Mg/240 Ml Bottle PO Q30M PRN GI Upset Cholecalciferol 125 mcg 04/20/22 09:00 04/24/22 08:30 Cholecalciferol 125 Mcg (5000 Iu) Tablet PO 125 mcg DAILY ATUL Administration Clopidogrel Bisulfate 75 mg 04/19/22 21:00 04/23/22 20:50 Clopidogrel 75 Mg Tab PO 75 mg HS ATUL Administration Cyanocobalamin 1,000 mcg 04/20/22 09:00 04/24/22 08:31 Cyanocobalamin 500 Mcg Tab PO 1,000 mcg DAILY ATUL Administration Diazepam 2 mg 04/19/22 16:22 04/23/22 16:53 Diazepam 2 Mg Tab PO 2 mg BID PRN Administration Anxiety Donepezil HCl 10 mg 04/20/22 09:00 04/24/22 08:32 Donepezil 10 Mg Tab PO 10 mg DAILY ATUL Administration Famotidine 40 mg 04/19/22 17:45 04/24/22 08:32 Famotidine 20 Mg Tab PO 40 mg DAILY ATUL Administration Folic Acid 1 mg 04/20/22 09:00 04/24/22 08:33 Folic Acid 1 Mg Tab PO 1 mg DAILY ATUL Administration Heparin Sodium (Porcine) 5,000 unit 04/19/22 17:45 04/24/22 17:17 Heparin Sodium,Porcine/Pf 5,000 Unit/0.5 Ml Syringe SQ 5,000 unit Q8HR ATUL Administration Sodium Chloride 1,000 mls @ 50 mls/hr 04/19/22 14:00 04/24/22 17:19 Saline 0.9% IV 50 mls/hr .Q20H ATUL Administration Isosorbide Mononitrate 30 mg 04/20/22 09:00 04/24/22 08:32 Isosorbide Mononitrate Er 30 Mg Tab.Er.24h PO 30 mg DAILY ATUL Administration Levothyroxine Sodium 125 mcg 04/20/22 06:30 04/24/22 05:44 Levothyroxine 125 Mcg Tab PO 125 mcg DAILY@0630 ATUL Administration Memantine 10 mg 04/19/22 21:00 04/24/22 08:32 Memantine 10 Mg Tab PO 10 mg BID ATUL Administration Midodrine 2.5 mg 04/19/22 17:30 04/24/22 17:17 Midodrine 5 Mg Tab PO 2.5 mg AC-TID ATUL Administration Naloxone HCl 0.2 mg 04/19/22 14:07 Naloxone 0.4 Mg/Ml 1 Ml Vial IV Q2M PRN Opioid Reversal Non-Formulary Medication 60 mg 04/20/22 09:00 04/24/22 08:33 Fluoxetine Hcl [Sarafem] PO Not Given DAILY ATUL Trazodone HCl 50 mg 04/19/22 21:00 04/23/22 20:50 Trazodone Hcl 50 Mg Tab PO 50 mg HS ATUL Administration Zinc Sulfate 220 mg 04/20/22 09:00 04/24/22 08:32 Zinc Sulfate 220 Mg Cap PO 220 mg DAILY ATUL Administration Objective - Vital Signs Vital signs: Vital Signs Temp 98.2 F 04/24/22 05:00 Pulse 90 04/24/22 09:30 Resp 16 04/24/22 08:30 BP 126/70 04/24/22 09:30 Pulse Ox 93 L 04/24/22 05:00 FiO2 Intake & Output 04/23/22 04/24/22 04/24/22 18:59 06:59 18:59 Intake Total 120 360 Balance 120 360 Intake: Oral 120 360 Other: Voiding Method Toilet Toilet Toilet Incontinent Incontinent Incontinent # Voids 1 4 # Bowel Movements 1 - Labs CBC & Chem 7: 04/23/22 06:25 04/23/22 06:25
[2022-04-24] MEDS: CLOPIDOGREL 75 MG TAB PO SCH (20:06)
[2022-04-24] MEDS: ATORVASTATIN 40 MG TAB PO SCH (20:06)
[2022-04-24] MEDS: traZODone HCL 50 MG TAB PO SCH (20:06)
[2022-04-24] MEDS: diazePAM 2 MG TAB PO PRN (20:06)
[2022-04-24] MEDS: ASPIRIN 81 MG PO SCH (20:06)
[2022-04-25] MEDS: HEPARIN SODIUM,PORCINE/PF 5,000 UNIT/0.5 ML SYRINGE SQ SCH ×3 (00:54→16:05)
[2022-04-25] MEDS: LEVOTHYROXINE 125 MCG TAB PO SCH (04:33)
[2022-04-25 05:00] VITALS: RESP 18
[2022-04-25] MEDS: MIDODRINE 5 MG TAB PO SCH ×2 (09:02→13:07)
[2022-04-25] MEDS: ZINC SULFATE 220 MG CAP PO SCH (09:03)
[2022-04-25] MEDS: FOLIC ACID 1 MG TAB PO SCH (09:03)
[2022-04-25] MEDS: CYANOCOBALAMIN 500 MCG TAB PO SCH (09:03)
[2022-04-25] MEDS: DONEPEZIL 10 MG TAB PO SCH (09:03)
[2022-04-25] MEDS: ISOSORBIDE MONONITRATE ER 30 MG TAB.ER.24H PO SCH (09:03)
[2022-04-25] MEDS: FAMOTIDINE 20 MG TAB PO SCH (09:03)
[2022-04-25] MEDS: ASCORBIC ACID 500 MG TAB PO SCH (09:03)
[2022-04-25] MEDS: MEMANTINE 10 MG TAB PO SCH (09:03)
[2022-04-25] MEDS: CHOLECALCIFEROL 125 MCG (5000 IU) TABLET PO SCH (09:03)
[2022-04-25] MEDS ORDERED: FLUoxetine HCL 20 MG CAP PO SCH (09:15)
--- NOTE | 2022-04-25 11:58 | P.DS ---
Providers Date of admission: 04/19/22 14:07 Expected date of discharge: 04/25/22 Attending physician: Jarad Leon Primary care physician: Joaquim [facility] Course: Hospital course: Patient is [id number] female with dementia, HLD< and hypothyroidism who presented with weakness. In the emergency department there was one blood pressure reading of 80/65. Repeat blood pressure reading was 104/72. Laboratory analysis in the ER was unremarkable. She was admitted for generalized weakness and possible urinary tract infection. Urinary tract infection was ruled out as patient has weight loss 25 but had 5 squamous epithelial cells. It does appear that she has slightly under treatment of her hypothyroidism since her TSH was 5.24. Her levothyroxine was increased. April 25: I assumed care of patient today from [facility] physicians. Patient sitting up in a recliner. Did walk with standby assistance. Eating fair. Pleasantly confused. Answers simple questions. Spoke with rn field case manager Mike. Patient be going to private pay rehab. Discussion and discharge planning more than 35 minutes General: Sitting up in a recliner, awake, comfortable Vitals: 98.3, 64, 18, 113 with 68, 96% room air Eyes: EOMI, no lid lag, anicteric sclera Mouth: no lip lesion, mucus membranes moist Cardiovascular: S1S2 reg, no murmur, positive posterior tibial pulse bilateral, Lungs: Decreased bs bilateral, no rhonchi, no rales , no accessory muscle use Abdominal: soft, nontender to palpation, no guarding, no appreciable organomegaly Ext: no gross muscle atrophy, no edema, no contractures Neuro: CN II-XI grossly intact, no focal neuro deficits Psych: Alert, oriented to self, answer occasional question, pleasantly confused INVESTIGATIONS, reviewed in the clinical context: White count 7.1 hemoglobin 12.8 platelets 197 potassium 3.9 creatinine 0.6 White admin D 94.5 TSH 5.2 vitamin B12 greater than 2000 Assessment/plan: Acute on chronic medical debility -PT/OT -Fall precautions UTI, ruled out - off IV Rocephin - Cultures were not obtained before initiating antibiotics Hypothyroidism controlled - Levothyroxine Episode of hypotension, resolved - now off metoprolol - continued on home midodrine Chronic conditions: Hypertension, hyperlipidemia, anxiety, depression, dementia, hypothyroid, hypotension Disposition: [facility] Plan - Discharge Summary New Discharge Prescriptions: Continue Cyanocobalamin (Vitamin B-12) [Vitamin B-12] 1,000 mcg PO DAILY Cholecalciferol [Vitamin D3 (125 Mcg = 5000 Iu)] 125 mcg PO DAILY Ascorbic Acid [Vitamin C] 500 mg PO BID Levothyroxine Sodium [Synthroid] 112 mcg PO DAILY FLUoxetine HCL [Sarafem] 60 mg PO DAILY Atorvastatin [Lipitor] 40 mg PO HS Clopidogrel [Plavix] 75 mg PO HS Midodrine HCl [ProAmantine] 2.5 mg PO TID Zinc Gluconate [Zinc] 50 mg PO DAILY ALPRAZolam [Xanax] 0.5 mg PO TID PRN PRN Reason: worsening anxiety traZODone HCL [Desyrel] 50 mg PO HS Memantine [Namenda] 10 mg PO BID Donepezil [Aricept] 10 mg PO DAILY Bacitracin Zinc Oint 1 applic TOPICAL DAILY PRN PRN Reason: SKIN TEARS Bismuth Subsalicylate [Pepto-Bismol] 30 ml PO Q30M PRN MDD 240 ml PRN Reason: Gi Upset Isosorbide Mononitrate ER [Imdur] 30 mg PO DAILY #90 tab Aspirin 81 mg PO HS Folic Acid 0.4 mg PO DAILY Discontinued Potassium Chloride [Klor-Con 8] 8 meq PO DAILY diazePAM [Valium] 2.5 mg PO BID No Action Metoprolol Succinate (ER) [Toprol XL] 25 mg PO DAILY #90 tab Discharge Medication List ALPRAZolam [Xanax] 0.5 mg PO TID PRN 03/23/22 [History] Ascorbic Acid [Vitamin C] 500 mg PO BID 03/23/22 [History] Bacitracin Zinc Oint 1 applic TOPICAL DAILY PRN 03/23/22 [History] Bismuth Subsalicylate [Pepto-Bismol] 30 ml PO Q30M PRN MDD 240 ml 03/23/22 [History] Cholecalciferol [Vitamin D3 (125 Mcg = 5000 Iu)] 125 mcg PO DAILY 03/23/22 [History] Cyanocobalamin (Vitamin B-12) [Vitamin B-12] 1,000 mcg PO DAILY 03/23/22 [History] Donepezil [Aricept] 10 mg PO DAILY 03/23/22 [History] FLUoxetine HCL [Sarafem] 60 mg PO DAILY 03/23/22 [History] Levothyroxine Sodium [Synthroid] 112 mcg PO DAILY 03/23/22 [History] Memantine [Namenda] 10 mg PO BID 03/23/22 [History] Zinc Gluconate [Zinc] 50 mg PO DAILY 03/23/22 [History] traZODone HCL [Desyrel] 50 mg PO HS 03/23/22 [History] Isosorbide Mononitrate ER [Imdur] 30 mg PO DAILY #90 tab 03/26/22 [Rx] Metoprolol Succinate (ER) [Toprol XL] 25 mg PO DAILY #90 tab 03/26/22 [Rx] Aspirin 81 mg PO HS 04/19/22 [History] Atorvastatin [Lipitor] 40 mg PO HS 04/19/22 [History] Clopidogrel [Plavix] 75 mg PO HS 04/19/22 [History] Folic Acid 0.4 mg PO DAILY 04/19/22 [History] Midodrine HCl [ProAmantine] 2.5 mg PO TID 04/19/22 [History] Follow up Appointment(s)/Referral(s): Joaquim Dennis MD [Primary Care Provider] - 1-2 days
[2022-04-25 12:23] VITALS: BP 110/64; PULSE 78; TEMP 98.2
[2022-04-25] MEDS: SODIUM CHLORIDE 0.9% 1,000 ML IV SCH (13:01)
== END 2022-04-25 17:45 | DRG 315 ==
LOC: SUPCPDRO 10:52 → EC 10:52 → 3SCARD 14:07 → 4SSUR 15:09 → 5NMEDONC 17:24
PROVIDERS: ADMIT Hospitalist; ATTEND Hospitalist
DX: I95.9 Hypotension, unspecified (principal); E44.1 Mild protein-calorie malnutrition; F03.94 Unspecified dementia, unspecified severity, with anxiety; F03.93 Unspecified dementia, unspecified severity, with mood disturbance; Z68.1 Body mass index [BMI] 19.9 or less, adult; R62.7 Adult failure to thrive; Z66 Do not resuscitate; E86.0 Dehydration; E78.5 Hyperlipidemia, unspecified; E03.9 Hypothyroidism, unspecified; I10 Essential (primary) hypertension; E55.9 Vitamin D deficiency, unspecified; M19.042 Primary osteoarthritis, left hand; M19.041 Primary osteoarthritis, right hand; K59.00 Constipation, unspecified; K57.90 Diverticulosis of intestine, part unspecified, without perforation or abscess without bleeding; R32 Unspecified urinary incontinence; Z79.82 Long term (current) use of aspirin; Z79.02 Long term (current) use of antithrombotics/antiplatelets; Z79.890 Hormone replacement therapy; Z79.899 Other long term (current) drug therapy; Z88.5 Allergy status to narcotic agent; Z87.891 Personal history of nicotine dependence; Z88.2 Allergy status to sulfonamides
CPT/HCPCS: 36415; 80048; 80053; 81001; 82306; 82607; 82746; 83605; 83735; 84100; 84439; 84443; 84484; 85025; 85610; 85730; 93005; 96360; 96361; 99285

== ENCOUNTER 2022-05-19 17:32 | Emergency (ER) | payer MEDICARE ==
[2022-05-19 17:40] VITALS: RESP 16; TEMP 97.6
--- NOTE | 2022-05-19 18:23 | CT ---
EXAMINATION TYPE: CT brain wo con CT DLP: 1129.4. mGycm, Automated exposure control for dose reduction was used. DATE OF EXAM: 05/19/2022 6:14 PM COMPARISON: None. CLINICAL INDICATION:Female, 82 years old with history of fall injury, fall. laceration to posterior h ead TECHNIQUE: Brain: Axial CT images of the brain were obtained with coronal and sagittal reformats created and rev iewed. Contrast used: None. Oral contrast used: None. FINDINGS: Brain: Extra-axial spaces: No abnormal extra-axial fluid collections. Ventricular system: Dilatation in proportion to cerebral atrophy. Cerebral parenchyma: Cerebral atrophy. No acute intraparenchymal hemorrhage or mass effect. The sanon -white junction is well differentiated. Scattered hypoattenuating areas are seen within the white mat ter. CSF attenuating left middle cranial fossa 2.5 x 2.3 cm. Cerebellum: Unremarkable. Mass effect: No evidence of midline shift. Intracranial vasculature: Atherosclerotic calcifications of the intracranial vessels. Soft tissues: Normal. Calvarium/osseous structures: No depressed skull fracture. Paranasal sinuses and mastoid air cells: Mild scattered paranasal sinus disease. Visualized orbits: Bilateral aphakia IMPRESSION: 1. No acute intracranial process. 2. Nonspecific white matter changes, likely secondary to chronic small vessel ischemic disease. 3. Left middle cranial fossa probable arachnoid cyst.
--- NOTE | 2022-05-19 19:36 | ED ---
Fall HPI - General Chief Complaint: Fall Stated Complaint: Fall Time Seen by Provider: 05/19/22 17:35 Source: patient Mode of arrival: EMS Limitations: altered mental status (Underlying dementia) - History of Present Illness Initial Comments: This patient is an 82-year-old woman in from long-term care facility to have evaluation of head injury and scalp laceration after ground-level fall. Patient reported to have a history of frequent falls. There is underlying dementia and she does not remember falling. She states that she does fall frequently. She denies complaints. Complaint: fall -: hour(s) Fall From: standing When Fall Occurred: 1-3 hours LOSS PREVENTION LEAD Fall Witnessed: no Place Fall Occurred: home Loss of Consciousness: unsure Prolonged Down Time?: no Location: head Severity scale (1-10): 0 Context: history of frequent falls Associated Symptoms: denies - Related Data Home Medications Medication Instructions Recorded Confirmed ALPRAZolam [Xanax] 0.5 mg PO TID PRN 03/23/22 04/19/22 Ascorbic Acid [Vitamin C] 500 mg PO BID 03/23/22 04/19/22 Bacitracin Zinc Oint 1 applic TOPICAL DAILY PRN 03/23/22 04/19/22 Bismuth Subsalicylate 30 ml PO Q30M PRN MDD 240 ml 03/23/22 04/19/22 [Pepto-Bismol] Cholecalciferol [Vitamin D3 (125 125 mcg PO DAILY 03/23/22 04/19/22 Mcg = 5000 Iu)] Cyanocobalamin (Vitamin B-12) 1,000 mcg PO DAILY 03/23/22 04/19/22 [Vitamin B-12] Donepezil [Aricept] 10 mg PO DAILY 03/23/22 04/19/22 FLUoxetine HCL [Sarafem] 60 mg PO DAILY 03/23/22 04/19/22 Levothyroxine Sodium [Synthroid] 112 mcg PO DAILY 03/23/22 04/19/22 Memantine [Namenda] 10 mg PO BID 03/23/22 04/19/22 Zinc Gluconate [Zinc] 50 mg PO DAILY 03/23/22 04/19/22 traZODone HCL [Desyrel] 50 mg PO HS 03/23/22 04/19/22 Aspirin 81 mg PO HS 04/19/22 04/19/22 Atorvastatin [Lipitor] 40 mg PO HS 04/19/22 04/19/22 Clopidogrel [Plavix] 75 mg PO HS 04/19/22 04/19/22 Folic Acid 0.4 mg PO DAILY 04/19/22 04/19/22 Midodrine HCl [ProAmantine] 2.5 mg PO TID 04/19/22 04/19/22 Previous Rx's Medication Instructions Recorded Isosorbide Mononitrate ER [Imdur] 30 mg PO DAILY #90 tab 03/26/22 Allergies Allergy/AdvReac Type Severity Reaction Status Date / Time codeine Allergy Unknown Verified 05/19/22 17:40 Sulfa (Sulfonamide Allergy Unknown Verified 05/19/22 17:40 Antibiotics) Review of Systems ROS Statement: Those systems with pertinent positive or pertinent negative responses have been documented in the HPI. ROS Other: All systems not noted in ROS Statement are negative. Constitutional: Denies: fever, weakness Eyes: Denies: eye pain, vision change ENT: Denies: epistaxis Respiratory: Denies: cough, dyspnea Cardiovascular: Denies: chest pain, palpitations, syncope Gastrointestinal: Denies: abdominal pain, vomiting Musculoskeletal: Denies: back pain Neurological: Denies: headache, weakness Past Medical History Past Medical History: Dementia, Hyperlipidemia, Thyroid Disorder Additional Past Medical History / Comment(s): depression and anxiety. weakness as well. Pt is admitted with anxiety, depression, dehydration and weakness. Other HX: hypothyroidism, recent UTI 05/30/15, arthiritis bilateral hands fingers, colonic polyps with removal, diverticular disease, occasional constipation. History of Any Multi-Drug Resistant Organisms: None Reported Past Surgical History: Adenoidectomy, Appendectomy, Hysterectomy, Orthopedic Surgery, Tonsillectomy Additional Past Surgical History / Comment(s): 2015 R heel tendon surgery with bone spur removal, bilateral cataracts, hemorrhoidectomy, R knee arthroscopy, colonoscopies with polypectomies, neuromas removed blateral feet as well as bunionectomy. Past Anesthesia/Blood Transfusion Reactions: Motion Sickness, Postoperative Nausea & Vomiting (PONV) Past Psychological History: Anxiety, Depression Smoking Status: Former smoker Past Alcohol Use History: Occasional Past Drug Use History: None Reported - Past Family History Father Additional Family Medical History / Comment(s): Father during abdominal aortic aneurysm repair at age 76yrs. Mother Family Medical History: Cancer Additional Family Medical History / Comment(s): Mother of breast cancer at age 77 yrs. General Exam Limitations: altered mental status General appearance: alert, in no apparent distress Head exam: Present: normocephalic, other (There is a scalp laceration approximately 2 cm in length to the right of the accept that. No bony tenderness or deformity) Eye exam: Present: normal appearance, PERRL, EOMI. Absent: scleral icterus, conjunctival injection Neck exam: Present: normal inspection, full ROM. Absent: tenderness Respiratory exam: Present: normal lung sounds bilaterally. Absent: respiratory distress, wheezes, rales, rhonchi, stridor, chest wall tenderness Cardiovascular Exam: Present: regular rate, normal rhythm, normal heart sounds. Absent: systolic murmur, diastolic murmur, rubs, gallop GI/Abdominal exam: Present: soft. Absent: distended, tenderness, guarding, rebound, rigid, mass Extremities exam: Present: normal inspection, normal capillary refill. Absent: pedal edema, calf tenderness Back exam: Present: normal inspection. Absent: CVA tenderness (R), CVA tenderness (L) Neurological exam: Present: alert Skin exam: Present: warm, dry, intact, normal color. Absent: rash Course Vital Signs 05/19/22 05/19/22 05/19/22 17:35 18:40 20:40 Temperature 97.6 F Pulse Rate 77 86 75 Respiratory 16 16 16 Rate Blood Pressure 103/66 110/60 110/60 O2 Sat by Pulse 98 96 98 Oximetry 05/19/22 21:00 Temperature Pulse Rate 68 Respiratory 16 Rate Blood Pressure 106/60 O2 Sat by Pulse 98 Oximetry Procedures - Laceration Laceration #1 Consent Obtained: verbal consent Indication: laceration Site: scalp Size (cm): 2 Description: linear Depth: simple, single layer Size of Sutures: other (Skin glue) Technique: other (Skin adhesive) Disposition Clinical Impression: Fall, Scalp laceration Disposition: HOME SELF-CARE Condition: Good Instructions (If sedation given, give patient instructions): Laceration (DC), Fall Prevention for Older Adults (ED), Skin Adhesive Care (ED) Is patient prescribed a controlled substance at d/c from ED?: No Referrals: Joaquim Dennis MD [Primary Care Provider] - 1-2 days
[2022-05-19] MEDS ORDERED: TOPICAL SKIN ADHESIVE 1 EACH AMP TOPICAL ONE (19:46)
[2022-05-19 21:16] VITALS: BP 106/60; PULSE 68
== END 2022-05-19 21:00 | disposition home or self-care (01) ==
LOC: EC 17:32
DX: S01.01XA Laceration without foreign body of scalp, initial encounter (principal); E78.5 Hyperlipidemia, unspecified; E03.9 Hypothyroidism, unspecified; F41.9 Anxiety disorder, unspecified; F32.A Depression, unspecified; Z87.891 Personal history of nicotine dependence; Z88.2 Allergy status to sulfonamides; Z88.5 Allergy status to narcotic agent; Z79.890 Hormone replacement therapy; Z79.82 Long term (current) use of aspirin; Z79.899 Other long term (current) drug therapy; W18.30XA Fall on same level, unspecified, initial encounter
CPT/HCPCS: 12001; 70450; 99285